=== PATIENT | male | born 1950 | race Caucasian/White ===

== ENCOUNTER 2019-09-11 12:43 | Outpatient (CLI) | payer MEDICARE, BC, SELFPAY ==
--- NOTE | 2019-09-11 13:01 | MR_ITS ---
WS: [id number] MRI CERVICAL SPINE NONCONTRAST TECHNIQUE: Sagittal T1, T2 and STIR imaging. Axial T2, gradient, and fiesta imaging. CLINICAL INFORMATION: NECK PAIN COMPARISON: November 05, 2008 FINDINGS: Some images degraded by patient motion. Straightening of the normal cervical lordosis. Cord signal is normal. No high-grade central canal stenosis. C2-C3: Mild right greater than left bony foraminal narrowing. Moderate right facet arthropathy. Spina l canal is patent. C3-C4: Mild disc osteophytic ridging. Moderate facet arthropathy. Moderate bilateral bony foraminal n arrowing. Spinal canal is patent. C4-C5: Mild disc bulging with endplate ridging. Moderate left and mild right bony foraminal narrowing . Moderate facet arthropathy. Spinal canal is patent. C5-C6: Mild disc osteophyte complex with endplate ridging. Mild central canal stenosis. Moderate left and mild to moderate right bony foraminal narrowing. Mild facet arthropathy. C6-C7: Shallow central disc protrusion with slight effacement of ventral thecal sac. Mild left and no significant right foraminal narrowing. Spinal canal is patent. C7-T1: Mild left and no significant right foraminal narrowing. Spinal canal is patent Visualized brain stem structures: Normal. Prevertebral soft tissues: Normal. MR/MR cervical spin wo con* [id number] IMPRESSION: 1. Straightening of the normal cervical lordosis. Cord signal is normal. No hi gh-grade central canal stenosis. 2. Mild central canal stenosis C4-C5 and C5-C6. 3. Small central disc protrusion C6-C7 with slight contact of the cervical cor d without significant central canal narrowing. 4. Multilevel mild to moderate bony foraminal narrowing worse at bilateral C3- 4, left C4-5, bilateral C5-C6 left greater than right, and left C6-7. 5. Multilevel moderate facet arthropathy worse at right C2-3, right C3-4, left C4-5.
--- NOTE | 2019-09-11 13:01 | MR_ITS ---
WS: [id number] MRI HEAD WITH CONTRAST WITH ATTENTION TO THE INTERNAL AUDITORY CANALS TECHNIQUE: Sagittal T1, T2 axial, T2 axial flair, axial susceptibility weighted imaging, axial diffus ion weighted images, and coronal T2 images were obtained. Pre and post T1 axial and post T1 coronal i mages. ADC and FSPGR images. Post gadolinium images with attention to the internal auditory canals. A xial fiesta imaging. CLINICAL INFORMATION: NECK PAIN COMPARISON: MRI November 05, 2008 FINDINGS: No evidence of restricted diffusion to suggest acute ischemia. Ventricular system and basal cisterns are patent. Minimal small vessel changes. Moderate parenchymal volume loss. Normal posterior fossa. N ormal vascular flow voids at the skull base. No extra-axial fluid collections. Paranasal sinuses and mastoid air cells are well aerated. No hemosiderin on the susceptibility weight ed images. Proximal 7th and 8th cranial nerves are normal in appearance. Normal trigeminal nerve root entry zones. No evidence of enhancing IAC or CP angle mass. Mild to moderate symmetric atrophy invol ving the temporal lobes and hippocampal formations. No abnormal intracranial enhancement. Normal visu alized dural venous sinuses. MR/MR iac's wo/w con* [id number] IMPRESSION: 1. No evidence of enhancing IAC or CP angle mass. Normal trigeminal nerve root entry zones. 2. Paranasal sinuses and mastoid air cells are well aerated. 3. Minimal small vessel changes with mild to moderate parenchymal volume loss. 4. No abnormal intracranial enhancement. 5. No restricted diffusion to suggest acute ischemia. 6. Mild to moderate symmetric atrophy involving the temporal lobes or hippocam pal formations. 7. Normal optic chiasm and pituitary infundibulum.
== END 2019-09-11 12:44 | disposition home or self-care (01) ==
LOC: RADWPI 12:51
PROVIDERS: Family Provider Family Medicine; PCP Family Medicine; Visit Provider Family Medicine
DX: M54.2 Cervicalgia (principal)
CPT/HCPCS: 70553; 72141; 82565; 84520

== ENCOUNTER 2019-10-12 17:02 | Emergency (ER) | payer MEDICARE, BC, SELFPAY ==
--- NOTE | 2019-10-12 17:15 | CTR_ITS ---
PROCEDURE INFORMATION: Exam: CT Head Without Contrast Exam date and time: 10/12/2019 5:17 PM Age: 69 years old Clinical indication: Dizziness and visual disturbance; Patient HX: Blurred vision for years. Worse withing last few days; Additional info: Vision problems TECHNIQUE: Imaging protocol: Computed tomography of the head without contrast. Radiation optimization: All CT scans at this facility use at least one of these dose optimization techniques: automated exposure control; mA and/or kV adjustment per patient size (includes targeted exams where dose is matched to clinical indication); or iterative reconstruction. COMPARISON: MR marley wo/w con* [id number] 09/11/2019 1:46 PM RADIATION DOSE METRICS: Total DLP: 847.86 mGy-cm FINDINGS: Brain: Mild cortical volume loss. No abnormal attenuation in the brain. No intracranial hemorrhage. Ventricles: Normal. No ventriculomegaly. Bones/joints: Unremarkable. No acute fracture. Sinuses: Visualized sinuses are unremarkable. No fluid levels. Mastoid air cells: Visualized mastoid air cells are well aerated. Soft tissues: Unremarkable. CT/CT head wo con* [id number] IMPRESSION: 1. No acute intracranial abnormality. Radiation Dose CTDIVOL = (mGy): DLP = 847.86 (mGy-cm)
[2019-10-12 17:22] VITALS: BP 178/107; PULSE 104; RESP 14; TEMP 36.2; O2SAT 95; BMI 27.9
--- NOTE | 2019-10-12 18:01 | ED_ITS ---
Documented by User: Elias Younger DO 10/13/19 11:02 HPI - Neuro Symptoms/Deficit General: Chief Complaint: Neuro Symptoms/Deficit Stated Complaint: double vision x 3 days Time Seen by Provider: 10/12/19 17:45 History of Present Illness: HPI Narrative: 69-year-old male comes in complaining that he cannot focus off and on his had problem with vision for several years. This happens to be a little bit worse today occasionally gets double vision. He has vertiginous symptoms particularly if he turns his head to the left or right but that as well is not anything new. States this started in 2008. He seen his primary care for DrStef for recently he had an MRI about 3 weeks ago [facility] of his head and his neck. He is referred to Dr. Boles for some cervical pathology he has seen Dr. Jackson in the past for s ome evaluation for the double vision and vertigo but he said nothing really came of that and is not seeing her back or any other neurologist. He denies any other problems. Denies any chest pain or shortness of breath denies any or GI symptoms that are new or different he has tried meclizine in the past with limited relief of symptoms. Onset (ago): year(s) (11 years worsening the last few days) Timing confirmed by: spouse History of same: Yes Severity: moderate Relieving factors: rest On Anticoagulants: No Associated symptoms: Reports no associated symptoms; Deny chest pain, malaise, nausea or vomiting Review of Systems Const: Denies: fever(s), chills, body aches, change in appetite, fatigue or malaise ENMT: Denies: throat pain, ear or mastoid pain, nasal discharge or nasal congestion Card: Denies: chest pain, edema, dyspnea on exertion or orthopnea Resp: Denies: dyspnea, productive cough or non-productive cough GI: Denies: abdominal pain, nausea, vomiting, hematemesis, coffee ground emesis, diarrhea, constipation, bloating, hematochezia or melena : Denies: flank pain, dysuria, urinary frequency or urinary urgency Skin/Breast: Denies: rash or pruritus PFSH ED PFSH: Social History Smoking and tobacco status: never smoked Physical Exam Const: COMMON NORMALS: no acute distress GENERAL APPEARANCE: cooperative and comfortable ORIENTATION/CONSCIOUSNESS: Yes awake, Yes oriented to person, Yes oriented to place and Yes oriented to time HENMT: COMMON NORMALS: normocephalic, atraumatic, hearing grossly normal bilaterally, external ears normal, EAC's normal, TM's normal bilaterally, Normal nasal mucous membranes and turbinates present, moist oral mucous membranes and oropharynx normal HEAD & SCALP: normocephalic and atraumatic NOSE: Normal nasal mucous membranes and turbinates present EXTERNAL EAR: Yes external ears normal EXTERNAL AUDITORY CANAL: EAC's normal TYMPANIC MEMBRANE: TM's normal bilaterally Eye: COMMON NORMALS: Equal, round and reactive pupils present, EOMs intact b ilaterally, conjunctivae normal and no scleral icterus CONJUNCTIVA: Yes conjunctivae normal PUPIL: Yes Equal, round and reactive pupils present Neck/C-Spine: COMMON NORMALS: full ROM, no lymphadenopathy, supple and no JVD Lymph: LYMPHATIC: no lymphadenopathy noted and no lymphedema noted Resp: COMMON NORMALS: normal respiratory effort, No retractions, No use of accessory muscles and clear to auscultation bilaterally AUSCULTATION: clear to auscultation bilaterally Cardio: COMMON NORMALS: no JVD, regular rate, regular rhythm and No murmurs present (Cardio) RATE: regular rate RHYTHM: regular rhythm GI: COMMON NORMALS: Soft to palpation and No hepatosplenomegaly present AUSCULTATION: Yes normoactive bowel sounds PALPATION: Yes Soft to palpation, No Tenderness to palpation present (GI), No Guarding due to palpation present (GI) and Yes No hepatosplenomegaly present Extremity: COMMON NORMALS: normal to inspection, capillary refill normal, no clubbing, cyanosis or edema, no calf tenderness and no pedal edema Neuro: SENSORIUM/ORIENTATION: Yes oriented to person, Yes oriented to place and Yes oriented to time Skin: COMMON NORMALS: no rashes or lesions noted GENERAL SKIN EXAM: no rashes or lesions noted Course Vital Signs: Vital signs: Vital Signs Temperature 97.1 F L 10/12/19 17:22 Pulse Rate 75 10/12/19 20:13 Respiratory Rate 18 10/12/19 20:13 Blood Pressure 159/109 10/12/19 20:13 Pulse Oximetry 98 10/12/19 20:13 MDM - Neuro Symptoms/Deficit MDM Narrative: Medical decision making narrative: Care turned over to Dr. Funez at change of shift. Reviewed Dr. Funez recently had MRI of the head and neck. Unfortunately I am not sure if we will do much for Mr. james here in the emergency room this is been a very longstanding problem and he has had extensive work-up beyond her capability here in the ER. Has not had any focal neurologic deficit that seems to be an exacerbation of chronic problems blood pressure is elevated given something to help alleviate that also some Ativan to help with the vertiginous symptoms I do question whether or not he has had purulent fistula years ago but he related that when this first began he was doing some heavy lifting recommended to him to discuss his primary care doctor referral to either neurology and/or ENT for further evaluation discussed this with Dr. Funez as well. Discharge Plan Discharge Patient Disposition: Home, Self-Care Clinical Impression: Dizziness Condition: Stable Prescriptions: New diazepam 5 mg tablet 2.5 mg PO QID PRN (Reason: dizziness or vertigo) Qty: 20 RF: 0 No Action celecoxib [Celebrex] 200 mg Capsule 200 mg PO BID PRN (Reason: Back Pain) RF: 0 omeprazole 20 mg Capsule,Delayed Release(Dr/Ec) 20 mg PO DAILY RF: 0 amlodipine-benazepril 10-20 mg Capsule 1 cap PO DAILY RF: 0 Tylenol Arthritis Pain 650 mg Tablet Extended Release 1,300 mg PO PRN RF: 0 Discharge Orders: Discharge Order (Routine); Ordered 10/12/19 Ordered By: Brenda Nicholas Referrals: Ele Jackson MD [Physician] - 1-3 days Yoseph Morel MD [Physician] - 1-3 days Grayson Batista MD [Primary Care Provider] - 1-3 days Discharge Diet: Advance as tolerated Discharge Activity: Increase activity as tolerated Patient Instructions: Vertigo (ED), Benign Paroxysmal Positional Vertigo (ED) Activity Restrictions/Additional Instructions: Please return to the ER immediately for any of the signs or symptoms listed on your discharge instruction sheets, worsening/changing of your symptoms, you are not getting better as quickly as expected, or for ANY other cause or concerns. You have been offered further evaluation and care here including blood work but you have declined. If your symptoms change or worsen in any way please return to the ER immediately for reexamination and further care. Contact Dr. Batista as soon as possible for an appointment to be seen in follow-up. Call for appointments to be seen by Dr. Jackson and Dr. Morel to have them evaluate you as well for your dizziness. Our case management will contact you in regards to outpatient physical therapy for your vertigo. Use the Valium for the next 2 days and then as needed only. Discharge Date/Time: 10/12/19 20:14 Sign Out Sign Out Data: Patient Sign Out occurred on 10/12/19 at 18:30. Patient's care was discussed, and care was transferred from to Brenda Nicholas. Coding Level of Care Code ED Jewelry Model Maker for Chg Fwd Exam Comprehensive Documented by User: Brenda Nicholas 10/12/19 21:35 HPI - Neuro Symptoms/Deficit General: Chief Complaint: Neuro Symptoms/Deficit Stated Complaint: double vision x 3 days Time Seen by Provider: 10/12/19 17:45 PFSH ED PFSH: Social History Smoking and tobacco status: never smoked Course Vital Signs: Vital signs: Vital Signs Temperature 97.1 F L 10/12/19 17:22 Pulse Rate 75 10/12/19 20:13 Respiratory Rate 18 10/12/19 20:13 Blood Pressure 159/109 10/12/19 20:13 Pulse Oximetry 98 10/12/19 20:13 MDM - Neuro Symptoms/Deficit MDM Narrative: Medical decision making narrative: 193 -patient's care was turned over to me at change of shift from Dr. Younger. Please see his portion of this note for his history, physical exam and medical decision making notes. Here the patient has mild nystagmus when looking to the left. He denies diplopia to me but states that he gets vision that it is hard to focus when this flares up. Denies any drunk sensation when he walks, he denies chest pain, shortness of breath, headache or otherwise. After his IV Ativan he states he is feeling better and his dizziness is improved although not completely gone. I reviewed the case with Dr. Jackson who agrees to see the patient in follow-up but thinks a referral for outpatient physical therapy for vestibular work-up and treatment would be appropriate. The patient agrees to do this. The patient will try Valium at home for his dizziness. He also would like to follow-up with an ENT as he has been told by family that can help so I will refer him to Dr. Morel. The patient had previously declined any kind of lab work-up. He declines any lab work at this time. He does though agree to return should his symptoms change or worsen. Imaging Data^: CT Head: Radiologist's impression: [place] [id number] CT Scan Report Signed Patient: Víctor James Unit #: [id number] : 1950 Age/Sex: 69 / M ADM Date: 10/12/19 Loc: ER Room/Bed: Attending Dr: Ordering Provider/Ordering MD: Barry Fletcher MD Date of Service: 10/12/19 Procedure(s): CT head wo con* [id number] Accession Number(s): [id number] Report Number: [id number] PROCEDURE INFORMATION: Exam: CT Head Without Contrast Exam date and time: 10/12/2019 5:17 PM Age: 69 years old Clinical indication: Dizziness and visual disturbance; Patient HX: Blurred vision for years. Worse withing last few days; Additional info: Vision problems TECHNIQUE: Imaging protocol: Computed tomography of the head without contrast. Radiation optimization: All CT scans at this facility use at least one of these dose optimization techniques: automated exposure control; mA and/or kV adjustment per patient size (includes targeted exams where dose is matched to clinical indication); or iterative reconstruction. COMPARISON: MR marley wo/w con* [id number] 09/11/2019 1:46 PM RADIATION DOSE METRICS: Total DLP: 847.86 mGy-cm FINDINGS: Brain: Mild cortical volume loss. No abnormal attenuation in the brain. No intracranial hemorrhage. Ventricles: Normal. No ventriculomegaly. Bones/joints: Unremarkable. No acute fracture. Sinuses: Visualized sinuses are unremarkable. No fluid levels. Mastoid air cells: Visualized mastoid air cells are well aerated. Soft tissues: Unremarkable. CT/CT head wo con* [id number] IMPRESSION: 1. No acute intracranial abnormality. Radiation Dose CTDIVOL = (mGy): DLP = 847.86 (mGy-cm) Dictated By: Nicolas Hirsch Signed By: Nicolas Hirsch Signed Date/Time: 10/12/191739 DD/ 36 EKG Data^: EKG 1: Attestation: I personally reviewed and interpreted this EKG as follows: EKG interpretation date: 10/12/19 EKG interpretation time: 18:29 Interpretation: Normal sinus rhythm at 76 beats a minute, no blocks, normal intervals, nonspecific ST and T wave changes. Discharge Plan Discharge Patient Disposition: Home, Self-Care Clinical Impression: Dizziness Condition: Stable Prescriptions: New diazepam 5 mg tablet 2.5 mg PO QID PRN (Reason: dizziness or vertigo) Qty: 20 RF: 0 No Action celecoxib [Celebrex] 200 mg Capsule 200 mg PO BID PRN (Reason: Back Pain) RF: 0 omeprazole 20 mg Capsule,Delayed Release(Dr/Ec) 20 mg PO DAILY RF: 0 amlodipine-benazepril 10-20 mg Capsule 1 cap PO DAILY RF: 0 Tylenol Arthritis Pain 650 mg Tablet Extended Release 1,300 mg PO PRN RF: 0 Discharge Orders: Discharge Order (Routine); Ordered 10/12/19 Ordered By: Brenda Nicholas Referrals: Ele Jackson MD [Physician] - 1-3 days Yoseph Morel MD [Physician] - 1-3 days Grayson Batista MD [Primary Care Provider] - 1-3 days Discharge Diet: Advance as tolerated Discharge Activity: Increase activity as tolerated Patient Instructions: Vertigo (ED), Benign Paroxysmal Positional Vertigo (ED) Activity Restrictions/Additional Instructions: Please return to the ER immediately for any of the signs or symptoms listed on your discharge instruction sheets, worsening/changing of your symptoms, you are not getting better as quickly as expected, or for ANY other cause or concerns. You have been offered further evaluation and care here including blood work but you have declined. If your symptoms change or worsen in any way please return to the ER immediately for reexamination and further care. Contact Dr. Batista as soon as possible for an appointment to be seen in follow-up. Call for appointments to be seen by Dr. Jackson and Dr. Morel to have them evaluate you as well for your dizziness. Our case management will contact you in regards to outpatient physical therapy for your vertigo. Use the Valium for the next 2 days and then as needed only. Discharge Date/Time: 10/12/19 20:14 Sign Out Sign Out Data: Patient Sign Out occurred on 10/12/19 at 18:30. Patient's care was discussed, and care was transferred from to Brenda Nicholas. Coding Level of Care Code ED Jewelry Model Maker for Harjinderg Fwd Exam Comprehensive
[2019-10-12] MEDS: LORazepam 2 mg/mL INJ 1 mL 1 MG IVP (18:41)
[2019-10-12] MEDS: amlodipine 5 mg Tablet PO (18:41)
[2019-10-12] MEDS: hyDRALAzine 20 mg/mL INJ 1 mL 5 MG IVP (18:41)
[2019-10-12 19:06] VITALS: BP 154/80; PULSE 76; RESP 16; O2SAT 97
[2019-10-12] MEDS: diazePAM 2 mg Tablet PO (20:09)
[2019-10-12 20:13] VITALS: BP 159/109; PULSE 75; RESP 18; O2SAT 98
--- NOTE | 2019-10-15 08:24 | DCPLANNER ---
nurse outreach case manager had message to arrange out patient physical therapy for patient. nurse outreach case manager faxed order for patients physical therapy to [facility]. nurse outreach case manager will call for appointment information.
== END 2019-10-12 20:14 | disposition home or self-care (01) ==
PROVIDERS: Emergency Provider Emergency Medicine; PCP Family Medicine
DX: R42 Dizziness and giddiness (principal)
CPT/HCPCS: 12345; 70450; 96374; 96375; 99281; 99283; J0360; J2060

== ENCOUNTER 2020-08-08 14:26 | Outpatient (CLI) | payer MEDICARE, BC, SELFPAY ==
--- NOTE | 2020-08-08 | US_ITS ---
WS: [id number] ULTRASOUND ABDOMEN CLINICAL INFORMATION: ELEVATED LIVER ENZYMES COMPARISON: None. FINDINGS: Liver Size: Enlarged Craniocaudal length: 18.6 cm. Echogenicity: Coarse with fatty infiltration Surface nodularity: None. Mass (size and location): None. Bile ducts Intrahepatic ducts: Normal. Common bile duct diameter: 2.1 mm. Gallbladder Normal. Gallstones: None. Gallbladder sludge: None. Gallbladder wall thickening: None. Pericholecystic fluid: None. Sonographic Johnson sign: Absent. Pancreas Normal as visualized. Right kidney: Normal. Hydronephrosis: None. Size: 10.6 cm x 5.1 cm x 4.5 cm Abdominal aorta and IVC Visualized portions are normal. Ascites: None. US/US liver [id number] IMPRESSION: 1. Hepatomegaly with diffuse fatty infiltration. 2. Normal gallbladder. 3. Normal common bile duct. 4. No hydronephrosis in right kidney.
== END 2020-08-08 14:27 | disposition home or self-care (01) ==
PROVIDERS: PCP Family Medicine; Visit Provider Family Medicine
DX: R94.5 Abnormal results of liver function studies (principal); R16.0 Hepatomegaly, not elsewhere classified; K76.0 Fatty (change of) liver, not elsewhere classified
CPT/HCPCS: 76705

== ENCOUNTER 2020-08-15 07:06 | Emergency (ER) | payer MEDICARE, BC, SELFPAY ==
[2020-08-15 07:10] VITALS: BP 167/95; PULSE 76; RESP 18; TEMP 36.4; O2SAT 97; BMI 27.5
--- NOTE | 2020-08-15 07:22 | CT_ITS ---
WS: [id number] CTA HEAD AND NECK TECHNIQUE: Contrast enhanced CTA of the head and neck with coronal and sagittal reformatted images an d maximum intensity projection (MIP) images. NASCET criteria utilized. CLINICAL INFORMATION: TIA COMPARISON: None. DLP: 2694.[address] scans at [facility] use at least one of these dose optimization techniques: automat ed exposure control; mA and/or kV adjustment per patient size (includes targeted exams where dose is matched to clinical indication); or iterative reconstruction. FINDINGS: RIGHT: Right common carotid artery is patent. No significant right ICA stenosis. ICA is patent to the skull base. LEFT: Left common carotid artery is patent. No significant left ICA stenosis. Left ICA is patent to t he skull base. Both vertebral arteries are patent. Hypoplastic right vertebral artery. INTRACRANIAL CTA: Proximal basilar artery is patent. Normal vascularity to the LAND SURVEYOR MANAGER territory bilaterally. Diminutive ve rtebrobasilar system. Anterior dominant circulation. Both ICAs are patent at the skull base. Normal v ascularity to the CÉSAR and MCA territories bilaterally. No evidence of high-grade proximal stenosis or aneurysm. Mild intracranial vascular calcification. Partially visualized right hilar lymphadenopathy measuring 3.[address]/CT angio headneck* [id number] IMPRESSION: 1. Partially visualized right hilar lymphadenopathy measuring 3.2 x 2.2 CM. Ne oplasm is not excluded recommend further evaluation with contrast-enhanced ches t CT. 2. No significant ICA stenosis bilaterally. Both ICAs are patent to the skull base. 3. No flow-limiting intracranial stenosis. 4. Left dominant vertebral artery with diminutive vertebrobasilar system and a nterior dominant circulation. 5. No other significant findings. Notified Elias Younger DO at 08/15/2020 8:52 AM.
--- NOTE | 2020-08-15 07:22 | XRR_ITS ---
PROCEDURE INFORMATION: Exam: XR Chest Exam date and time: 08/15/2020 7:26 AM Age: 69 years old Clinical indication: Other: HTN; Patient HX: No chest complaints TECHNIQUE: Imaging protocol: XR of the chest Views: 1 view. COMPARISON: No relevant prior studies available. FINDINGS: Lungs: Unremarkable. No consolidation. Pleural spaces: Unremarkable. No pleural effusion. No pneumothorax. Heart/Mediastinum: Unremarkable. No cardiomegaly. Bones/joints: Unremarkable. XR/XR chest 1V portable [id number] IMPRESSION: No significant findings.
--- NOTE | 2020-08-15 07:23 | CT_ITS ---
WS: [id number] CT HEAD TECHNIQUE: Noncontrast CT of the head obtained from the skullbase to the vertex. CLINICAL INFORMATION: Symptoms of Acute Stroke COMPARISON: None. DLP: 863.[address] scans at [facility] use at least one of these dose optimization techniques: automat ed exposure control; mA and/or kV adjustment per patient size (includes targeted exams where dose is matched to clinical indication); or iterative reconstruction. FINDINGS: No evidence of intracranial hemorrhage or mass effect. Ventricular system and basal cisterns are chaudhari nt. Mild small vessel changes with mild parenchymal volume loss. No extra-axial fluid collections. No evidence of mass or mass effect. Normal contreras-white differentiation. Paranasal sinuses and mastoid air cells are well aerated. .Normal visualized soft tissues. CT/CT head wo con* [id number] IMPRESSION: 1. No evidence of intracranial hemorrhage or mass effect. 2. Mild small vessel changes. Mild parenchymal volume loss. 3. No acute intracranial findings. Notified Elias Younger DO at 08/15/2020 8:20 AM.
--- NOTE | 2020-08-15 07:23 | ECG_ITS ---
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 Measurements Intervals [place] Rate: 63 P: 13 MA: 127 QRS: -21 QRSD: 106 T: 8 QT: 406 QTc: 417 Interpretive Statements SINUS RHYTHM BORDERLINE LEFT AXIS DEVIATION [QRS AXIS < -20] No previous ECG available for comparison Electronically Signed On 08-16-2020 1:11:33 CDT by Opal Kamara M.D. [email or web address]
--- NOTE | 2020-08-15 07:24 | ED_ITS ---
HPI - Neuro Symptoms/Deficit General: Chief Complaint: Neuro Symptoms/Deficit Stated Complaint: FACE/ARM/LEG NUMBNESS Time Seen by Provider: 08/15/20 07:14 History of Present Illness: HPI Narrative: 69-year-old male presents emergency room with complaint of left-sided numbness, tingling and weakness. Patient woke up this morning and seemed to be his normal self and then about 20 to 30 minutes after he woke up he began getting numbness and tingling on the left side of his face his arm and his leg on the left. This is all resolved now. He has a history of hypertension was recently told he had fatty liver he was also started on Metformin but he is does not recall being told he is diabetic. He is not previously had any heart disease or previous TIAs or strokes that he is aware of. Symptoms lasted less than 1 hour. Onset (ago): minute(s) Location: left face, left arm and left leg History of same: No Severity: mild Quality: weak, numb and tingling Relieving factors: time Exacerbating factors: none Associated symptoms: Deny chest pain, cough, diaphoresis, fevers/chills, headache(s), anorexia, malaise, nausea, seizures, short of breath, syncope, tingling, vertigo, vomiting or weakness Treatments Prior to Arrival: none Review of Systems Const: Denies: malaise or diaphoresis ENMT: Denies: throat pain, ear or mastoid pain, nasal discharge or nasal congestion Card: Denies: chest pain or syncope Resp: Denies: dyspnea, productive cough or non-productive cough GI: Denies: nausea or vomiting : Denies: flank pain, dysuria, urinary frequency or urinary urgency Skin/Breast: Denies: rash or pruritus Neuro: Denies: headache(s) or vertigo PFS ED PFSH: Social History Smoking and tobacco status: never smoked NIH stroke score NIHSS: Level Of Consciousness - 1a: 0 Level Of Consciousness Questions - 1b: Both Correct Level Of Consciousness Commands - 1c: Both Correct Best Gaze - 2: Normal Visual Hunter - 3: No Visual Loss Facial Palsy - 4: Normal Motor Arm Right - 5: No Drift Motor Arm Left - 5: No Drift Motor Leg Right - 6: No Drift Motor Leg Left - 6: No Drift Limb Ataxia - 7: Absent Sensory - 8: Normal Best Language - 9: No Aphasia Dysarthia - 10: Normal Extinction And Inattention - 11: 0 Score: Total Score: 0 Physical Exam Const: COMMON NORMALS: no acute distress GENERAL APPEARANCE: cooperative and comfortable ORIENTATION/CONSCIOUSNESS: Yes awake, Yes oriented to person, Yes oriented to place and Yes oriented to time HENMT: COMMON NORMALS: normocephalic, atraumatic, hearing grossly normal bilaterally, external ears normal, EAC's normal, TM's normal bilaterally, Normal nasal mucous membranes and turbinates present, moist oral mucous membranes and oropharynx normal HEAD & SCALP: normocephalic and atraumatic NOSE: Normal nasal mucous membranes and turbinates present EXTERNAL EAR: Yes external ears normal EXTERNAL AUDITORY CANAL: EAC's normal TYMPANIC MEMBRANE: TM's normal bilaterally Eye: COMMON NORMALS: Equal, round and reactive pupils present, EOMs intact bilaterally, conjunctivae normal and no scleral icterus CONJUNCTIVA: Yes conjunctivae normal PUPIL: Yes Equal, round and reactive pupils present Neck/C-Spine: COMMON NORMALS: no JVD Resp: COMMON NORMALS: normal respiratory effort, No retractions, No use of accessory muscles and clear to auscultation bilaterally AUSCULTATION: clear to auscultation bilaterally Cardio: COMMON NORMALS: no JVD, regular rate, regular rhythm and No murmurs present (Cardio) RATE: regular rate RHYTHM: regular rhythm GI: COMMON NORMALS: Soft to palpation and No hepatosplenomegaly present AUSCULTATION: Yes normoactive bowel sounds PALPATION: Yes Soft to palpation, No Tenderness to palpation present (GI), No Guarding due to palpation present (GI) and Yes No hepatosplenomegaly present Extremity: COMMON NORMALS: normal to inspection, capillary refill normal, no clubbing, cyanosis or edema, no calf tenderness and no pedal edema Neuro: SENSORIUM/ORIENTATION: Yes oriented to person, Yes oriented to place and Yes oriented to time Skin: COMMON NORMALS: no rashes or lesions noted GENERAL SKIN EXAM: no rashes or lesions noted Course Vital Signs: Vital signs: Vital Signs Temperature 97.5 F L 08/15/20 07:10 Pulse Rate 65 08/15/20 08:50 Respiratory Rate 18 08/15/20 08:50 Blood Pressure 163/98 08/15/20 07:35 Pulse Oximetry 99 08/15/20 08:50 MDM - Neuro Symptoms/Deficit MDM Narrative: Medical decision making narrative: Symptoms completely resolved. CT of the head and neck is negative for any vascular compromise however there is a question of some enlarged lymph nodes on the upper portion chest which was caught on the CTA head and neck.Some right hilar lymphadenopathy which is concerning with lymph nodes as large as 3.2 cm. Discussed this with the patient will make a arrangements for an outpatient CT of the chest with contrast and a follow-up with Dr. Carver or Dr. Param Sarmiento one of the embedded processor. Additionally advised him to follow-up with Dr. Batista on his blood pressure its at home he reports blood pressures in the 130 systolic over the 70s. Here it is a little bit more elevated also asked him to start taking aspirin daily return if has problems. Lab Data: Labs: Lab Results 08/15/20 08/15/20 08/15/20 Range/Units 07:32 07:32 07:32 WBC 6.8 (4.0-10.0) 10^3/ uL RBC 4.38 (4.1-5.3) 10^6/u L Hgb 14.3 (11.7-16.6) g/dL Hct 42.4 (42.0-52.0) % MCV 96.8 H (80-94) fL MCH 32.6 (28.0-34.0) pg MCHC 33.7 (30.0-36.0) g/dL RDW 12.1 (12.1-15.1) % Plt Count 293 (130-400) 10^3/c mm MPV 8.8 (7.4-10.4) fL Neut % (Auto) 65.0 % Lymph % (Auto) 24.0 % [place] % (Auto) 8.1 % Eos % (Auto) 2.2 % Baso % (Auto) 0.6 % Neut # (Auto) 4.38 (1.8-7.7) 10^3/u L Lymph # (Auto) 1.6 (0.8-4.8) 10^3/u L [place] # (Auto) 0.6 (0.2-0.9) 10^3/u L Eos # (Auto) 0.2 (0.0-0.8) 10^3/u L Baso # (Auto) 0.0 (0.0-0.1) 10^3/u L Nucleated RBC % (a uto) 0 % Nucleated RBCs # 0.0 /100WBC PT 12.80 (12.1-14.9) SECO NDS INR 0.93 (0.8-1.2) APTT 26.0 (23.9-36.7) SECO NDS Sodium 139 (136-145) mmol/L Potassium 4.1 (3.5-5.1) mmol/L Chloride 105 (98-107) mmol/L Carbon Dioxide 23 (22-29) mmol/L Anion Gap 15.1 (5-19) BUN 15 (8-23) mg/dL Creatinine 1.0 (0.7-1.2) mg/dL GFR Calculation 73.9 L (90-130) mL/min Glucose 111 (65-115) mg/dL POC Glucose (70-110) mg/dL Calculated Osmolal ity 290 (285-295) mOsm/k g Calcium 9.0 (8.5-10.5) mg/dL Total Bilirubin 0.4 (0.15-1.2) mg/dL AST 31 (0-40) U/L ALT 57 H (0-41) U/L Alkaline Phosphata se 29 L (40-130) IU/L Total Protein 7.4 (6.6-8.7) g/dL Albumin 4.4 (3.5-5.2) g/dL Globulin 3.0 (1.3-4.6) g/dL Urine Color (Yellow) Urine Appearance (CLEAR) Urine pH (5-7) Ur Specific Gravit y (1.005-1.030) Urine Protein (Negative) Urine Glucose (UA) (Normal) Urine Ketones (Negative) Urine Blood (Negative) Urine Nitrate (Negative) Urine Bilirubin (Negative) Urine Urobilinogen (Negative) mg/dL Ur Leukocyte Edie ase (Negative) 08/15/20 08/15/20 Range/Units 07:33 08:30 WBC (4.0-10.0) 10^3/ uL RBC (4.1-5.3) 10^6/u L Hgb (11.7-16.6) g/dL Hct (42.0-52.0) % MCV (80-94) fL MCH (28.0-34.0) pg MCHC (30.0-36.0) g/dL RDW (12.1-15.1) % Plt Count (130-400) 10^3/c mm MPV (7.4-10.4) fL Neut % (Auto) % Lymph % (Auto) % [place] % (Auto) % Eos % (Auto) % Baso % (Auto) % Neut # (Auto) (1.8-7.7) 10^3/u L Lymph # (Auto) (0.8-4.8) 10^3/u L [place] # (Auto) (0.2-0.9) 10^3/u L Eos # (Auto) (0.0-0.8) 10^3/u L Baso # (Auto) (0.0-0.1) 10^3/u L Nucleated RBC % (a uto) % Nucleated RBCs # /100WBC PT (12.1-14.9) SECO NDS INR (0.8-1.2) APTT (23.9-36.7) SECO NDS Sodium (136-145) mmol/L Potassium (3.5-5.1) mmol/L Chloride (98-107) mmol/L Carbon Dioxide (22-29) mmol/L Anion Gap (5-19) BUN (8-23) mg/dL Creatinine (0.7-1.2) mg/dL GFR Calculation (90-130) mL/min Glucose (65-115) mg/dL POC Glucose 109 (70-110) mg/dL Calculated Osmolal ity (285-295) mOsm/k g Calcium (8.5-10.5) mg/dL Total Bilirubin (0.15-1.2) mg/dL AST (0-40) U/L ALT (0-41) U/L Alkaline Phosphata se (40-130) IU/L Total Protein (6.6-8.7) g/dL Albumin (3.5-5.2) g/dL Globulin (1.3-4.6) g/dL Urine Color Yellow (Yellow) Urine Appearance Clear (CLEAR) Urine pH 6.5 (5-7) Ur Specific Gravit y 1.005 (1.005-1.030) Urine Protein Neg (Negative) Urine Glucose (UA) Norm (Normal) Urine Ketones Negative (Negative) Urine Blood Neg (Negative) Urine Nitrate Negative (Negative) Urine Bilirubin Neg (Negative) Urine Urobilinogen Norm (Negative) mg/dL Ur Leukocyte Edie ase Negative (Negative) Discharge Plan Discharge Patient Disposition: Home Clinical Impression: Transient cerebral ischemia, Hilar lymphadenopathy, Hypertension Condition: Stable Prescriptions: New aspirin 81 mg tablet,delayed release (DR/EC) 81 mg PO DAILY Qty: 30 RF: 0 No Action celecoxib [Celebrex] 200 mg Capsule 200 mg PO BID PRN (Reason: Back Pain) RF: 0 omeprazole 20 mg Capsule,Delayed Release(Dr/Ec) 20 mg PO DAILY RF: 0 amlodipine-benazepril 10-20 mg Capsule 1 cap PO DAILY RF: 0 Tylenol Arthritis Pain 650 mg Tablet Extended Release 1,300 mg PO PRN RF: 0 diazepam 5 mg tablet 2.5 mg PO QID PRN (Reason: dizziness or vertigo) Qty: 20 RF: 0 Discharge Orders: Discharge ED (Routine); Ordered 08/15/20 Ordered By: Elias Younger Referrals: Grayson Batista MD [Primary Care Provider] - Patient Instructions: Opioid Safety Activity Restrictions/Additional Instructions: Follow-up with Dr. Batista within a week to reevaluate blood pressure. Case management will call to make an appointment for a CT of the chest and follow-up with Dr. Arias for abnormal lymph nodes seen in the chest today. Coding Level of Care Code ED Veterinary Pathologist for Chg Fwd Exam Comprehensive
[2020-08-15 07:35] VITALS: BP 163/98; PULSE 65; RESP 18; O2SAT 99
[2020-08-15 07:39] LABS: Glucose Point of Care 109 mg/dL (70-110)
[2020-08-15 07:42] LABS: Basophils % 0.6 %; Eosinophils # 0.2 10^3/uL (0.0-0.8); Eosinophils % 2.2 %; Hematocrit 42.4 % (42.0-52.0); Hemoglobin 14.3 g/dL (11.7-16.6); Lymphocytes # 1.6 10^3/uL (0.8-4.8); Mean Corpuscular HGB Conc 33.7 g/dL (30.0-36.0); Mean Corpuscular Hemoglobin 32.6 pg (28.0-34.0); Mean Corpuscular Volume 96.8 fL (80-94); Mean Platelet Volume 8.8 fL (7.4-10.4); Monocytes # 0.6 10^3/uL (0.2-0.9); Monocytes % 8.1 %; Neutrophils # 4.38 10^3/uL (1.8-7.7); Nucleated Red Blood Cells % 0 %; Platelet Count 293 10^3/cmm (130-400); Red Blood Count 4.38 10^6/uL (4.1-5.3); Red Cell Distribution Width 12.1 % (12.1-15.1); White Blood Count 6.8 10^3/uL (4.0-10.0)
[2020-08-15 07:57] LABS: INR 0.93 (0.8-1.2)
[2020-08-15 08:04] LABS: Alanine Aminotransferase 57 U/L (0-41); Albumin Level 4.4 g/dL (3.5-5.2); Alkaline Phosphatase 29 IU/L (40-130); Anion Gap 15.1 (5-19); Aspartate Amino Transferase 31 U/L (0-40); Blood Urea Nitrogen 15 mg/dL (8-23); Carbon Dioxide 23 mmol/L (22-29); Chloride 105 mmol/L (98-107); Glomerular Filtration Rate 73.9 mL/min (90-130); Glucose 111 mg/dL (65-115); Osmolality Calculated 290 mOsm/kg (285-295); Potassium 4.1 mmol/L (3.5-5.1); Sodium 139 mmol/L (136-145); Total Bilirubin 0.4 mg/dL (0.15-1.2); Total Protein 7.4 g/dL (6.6-8.7)
[2020-08-15] MEDS: iohexol 350 mg/mL 100 mL Btl IV (08:17)
[2020-08-15 08:41] LABS: Add Urine Microscopic? NO; Charge for UA Resulting for Rev
[2020-08-15 08:50] VITALS: PULSE 65; RESP 18; O2SAT 99
[2020-08-15 08:50] LABS: Bilirubin Urine Neg (Negative); Blood Urine Neg (Negative); Glucose Urine UA Norm (Normal); Ketones Urine Negative (Negative); Leukocyte Esterase Urine Negative (Negative); Nitrate Urine Negative (Negative); Protein Urine Neg (Negative); Specific Gravity, Urine 1.005 (1.005-1.030); Urine Appearance Clear (CLEAR); Urine Color Yellow (Yellow); Urobilinogen Urine Norm (Negative); pH Urine 6.5 (5-7)
[2020-08-15 09:56] VITALS: BP 163/96; PULSE 65; RESP 18; O2SAT 98
--- NOTE | 2020-08-15 10:15 | DCPLANNER ---
product management manager to schedule an outpatient CT of chest for patient and then a follow up appointment with Dr. Arias. product management manager called centralized scheduling and spoke with Eliana, a CT scan was scheduled for Monday, August 17, 2020 at 8:15 at [facility]. product management manager called [facility], spoke with Vanessa, a follow up appointment was scheduled for Wednesday, August 19, 2020 at 10:[address] Arias. Patient was still in room in ED, major case detective informed patient of the scheduled appointments. Patient stated that he would attend the appointments.
--- NOTE | 2020-08-24 12:28 | DCPLANNER ---
Patient had a follow up appointment scheduled for 08.17.[address] - patient did attend appointment. Patient had a follow up appointment scheduled for 08.19.[address] Arias at [facility] - patient did attend appointment.
== END 2020-08-15 09:55 | disposition home or self-care (01) ==
PROVIDERS: Emergency Provider Family Medicine; PCP Family Medicine
DX: G45.9 Transient cerebral ischemic attack, unspecified (principal); R59.1 Generalized enlarged lymph nodes
CPT/HCPCS: 36416; 70450; 70496; 70498; 71045; 80053; 81003; 82962; 85025; 85610; 85730; 93005; 99284; Q9967

== ENCOUNTER 2020-08-17 08:04 | Outpatient (CLI) | payer MEDICARE, BC, SELFPAY ==
--- NOTE | 2020-08-17 08:12 | CT_ITS ---
WS: [id number] CT CHEST WITH INTRAVENOUS CONTRAST HISTORY: HILAR LYMPHADENOPATHY TECHNIQUE: Contiguous 5 mm axial imaging performed on the thorax. Coronal and sagittal reformats are submitted. All CT scans at [facility] use at least one of these dose optimization techniq ues: automated exposure control; mA and/or kV adjustment per patient size (includes targeted exams wh ere dose is matched to clinical indication); or iterative reconstruction. CONTRAST: Omnipaque 300; 95 mL IV. DLP: 988.15 mGycm COMPARISON: 08/15/2020 Lungs and central airway: Normal. Pleura: Normal. No pleural effusion. Heart and pericardium: . Mildly enlarged heart. No effusion. Mediastinum and carlos: Mildly prominent hilar lymph nodes. The largest lymph nodes measures 12 mm. Sli ghtly decreased in size since the prior study of 08/15/2020 and these may have been reactive lymph node s. Subcentimeter paratracheal lymph nodes. Vessels: Mild atherosclerosis aorta. No aneurysm. Normal size pulmonary artery. Chest wall and lower neck: No soft tissue masses. Upper abdomen: Subcentimeter cyst in the RIGHT lobe of the liver. Normal gallbladder as visualized. T he entire gallbladder is not imaged. No adrenal mass. There is mild thickening of the stomach mucosa may represent a mild gastroenteritis. No adjacent lymph nodes. Osseous structures: Increase in thoracic kyphosis. No osteoblastic or osteolytic bone disease. CT/CT chest w con* [id number] IMPRESSION: 1. No pulmonary mass or nodule or pneumonia. 2. Minimally prominent but indeterminate RIGHT hilar lymph nodes. Lymph node h as decreased in size since 08/15/2020 and these may may be reactive. 3. Very mild thickening of the stomach mucosa may be due to underdistention or mild gastritis. No inflammatory changes.
[2020-08-17] MEDS: iohexol 300 mg/mL 100 mL Btl IV (08:46)
== END 2020-08-17 08:05 | disposition home or self-care (01) ==
LOC: RADWPI 08:05
PROVIDERS: PCP Family Medicine; Visit Provider Family Medicine
DX: R59.1 Generalized enlarged lymph nodes (principal)
CPT/HCPCS: 71260; Q9967

== ENCOUNTER 2020-09-07 12:44 | Outpatient (CLI) | payer MEDICARE, BC, SELFPAY ==
--- NOTE | 2020-09-07 12:59 | MR_ITS ---
WS: [id number] MRI BRAIN WITH AND WITHOUT CONTRAST HISTORY: TIA COMPARISON: CT head 08/15/2020 and prior MRI 09/11/2019. TECHNIQUE: Multiplanar imaging performed through the brain with MultiHance 20 ml's IV. No acute infarcts are seen. Ramsey-white matter differentiation is well preserved. No significant micro vascular ischemic disease. No prior infarct. No susceptibility artifacts or prior lacunar infarcts. Ventricles and extra-axial spaces are normal. Clivus and pituitary gland are normal. Visualized posterior fossa and brainstem are also normal. Postcontrast images are negative for masses or vascular malformations. Dural venous sinuses are normal. Paranasal sinuses: Well aerated with no significant disease. Mastoid air cells: Normal. Calvarium and scalp: Normal. MR/MR head wo/w con [id number] IMPRESSION: 1. No evidence for an acute or remote infarct. 2. No enhancing masses. 3. Essentially normal MRI brain with contrast.
[2020-09-07] MEDS: gadobenate dimeglumine 20 mL vial IV (14:33)
== END 2020-09-07 12:45 | disposition home or self-care (01) ==
LOC: RADSHAW 12:47
PROVIDERS: PCP Family Medicine; Visit Provider Family Medicine
DX: G45.9 Transient cerebral ischemic attack, unspecified (principal)
CPT/HCPCS: 70553; A9577

== ENCOUNTER 2020-09-07 14:55 | Outpatient (CLI) | payer MEDICARE, BC, SELFPAY ==
--- NOTE | 2020-09-07 | US_ITS ---
WS: [id number] ULTRASOUND CAROTID INDICATION: Carotid stenosis. TIA. TECHNIQUE: Ultrasound examination both carotid arteries with Doppler. FINDINGS: Both common carotid arteries are patent. No significant ICA stenosis bilaterally. External carotid arteries are patent. Antegrade flow both vertebral arteries. US/ROR carotid duplex BI IMPRESSION: No significant ICA stenosis.
== END 2020-09-07 14:56 | disposition home or self-care (01) ==
PROVIDERS: PCP Family Medicine; Visit Provider Family Medicine
DX: Z53.9 Procedure and treatment not carried out, unspecified reason (principal)

== ENCOUNTER 2020-09-20 09:15 | Outpatient (CLI) | payer MEDICARE, BC, SELFPAY ==
--- NOTE | 2020-09-20 09:29 | USCV_ITS ---
JacobVíctor Age: 69 Gender: M : 1950 Exam Date: 09/20/2020 09:40 Ordering Phys: Grayson Batista MD Technologist: Felecia Yeung Exam Location: [facility] [place] Indication: TIA BP: 142 / 80 HR: 65 Rhythm: Sinus Technical Quality: Adequate MEASUREMENTS (Male / Female) Normal Values 2D ECHO LV Diastolic Diameter PLAX 4.4 cm 4.2 - 5.9 / 3.9 - 5.3 cm LV Systolic Diameter PLAX 2.5 cm LV Chamber Size 3.5 cm IVS Diastolic Thickness 1.3 cm 0.6 - 1.0 / 0.6 - 0.9 cm IVS Systolic Thickness 1.7 cm LVPW Diastolic Thickness 1.3 cm 0.6 - 1.0 / 0.6 - 0.9 cm LVPW Systolic Thickness 1.4 cm RV Chamber Size 2.8 cm LVOT Diameter 2.0 cm LV Ejection Fraction 2D Teich 73.9 % LV Ejection Fraction MOD 2C 74.3 % LV Ejection Fraction 2C AL 74.6 % LA Diameter 3.8 cm LA Width 2.9 cm LA Height 5.1 cm RA Width 3.1 cm RA Height 4.6 cm Aorta at Sinotubular Diameter 3.5 cm M-MODE LV Diastolic Diameter MM 3.0 cm 4.2 - 5.9 / 3.9 - 5.3 cm LV Systolic Diameter MM 1.8 cm LV Ejection Fraction MM Teich 70.1 % IVS Diastolic Thickness MM 0.9 cm 0.6 - 1.0 / 0.6 - 0.9 cm IVS Systolic Thickness MM 1.1 cm LVPW Diastolic Thickness MM 1.3 cm 0.6 - 1.0 / 0.6 - 0.9 cm LVPW Systolic Thickness MM 1.3 cm RV Diastolic Diameter MM 1.2 cm Aortic Annulus Diameter 3.9 cm LA Ao Ratio MM 1.1 MV E Point Septal Separation 0.3 cm DOPPLER AV Peak Velocity 166.0 cm/s LVOT Peak Velocity 96.0 cm/s AV Area Cont Eq vti 2.4 cm squared AV Area Cont Eq pk 1.9 cm squared MV Area PHT 3.1 cm squared Mitral E to A Ratio 1.5 MV E' Velocity 55.0 cm/s Mitral E to MV E' Ratio 8.5 Mitral E to LV E' Lateral Ratio 6.5 Mitral E to LV E' Septal Ratio 12.2 TR Peak Velocity 203.8 cm/s TR Peak Gradient 16.6 mmHg TR Mean Velocity 181.2 cm/s TR Mean Gradient 15.0 mmHg TR Velocity Time Integral 59.6 cm TV Peak E Velocity 55.0 cm/s Right Atrial Pressure 3.0 mmHg Pulmonary Artery Systolic Pressu 19.6 mmHg PV Peak Velocity 69.0 cm/s RV Acceleration Time 0.2 s RV Ejection Time 0.3 s RV AcT/ET 0.5 FINDINGS Left Ventricle Normal left ventricular size, systolic function and wall thickness, with no regional wall motion abnormalities. Left ventricular ejection fraction is estimated at 75 %. Normal diastolic function. Right Ventricle Normal right ventricular size and systolic function. Right ventricular systolic pressure 19.6 mmHg. Right Atrium Normal right atrial size. Right atrial pressure estimated at 3 mmHg. Left Atrium Upper normal left atrial size. Mitral Valve Structurally normal mitral valve. No mitral valve stenosis. Trace mitral valve regurgitation. Aortic Valve Structurally normal trileaflet aortic valve. No aortic valve stenosis. Moderate aortic valve regurgitation. Tricuspid Valve Structurally normal tricuspid valve. No tricuspid valve stenosis. Trace tricuspid valve regurgitation. Pulmonic Valve Structurally normal pulmonic valve. No pulmonary valve stenosis. Trace pulmonary valve regurgitation. Pericardium No pericardial effusion. Aorta Normal size aortic root and proximal ascending aorta. Normal- sized inferior vena cava with normal respiratory variation. CONCLUSIONS 1. Normal left ventricular size, systolic function and wall thickness, with no regional wall motion abnormalities. Left ventricular ejection fraction is estimated at 75 %. Normal diastolic function. 2. Normal right ventricular size and systolic function. 3. Normal pulmonary artery pressure. 4. Moderate aortic valve regurgitation. 5. No prior similar studies to compare. Lindsey Ryan MD (Electronically Signed) Final Date: 21 Sep 2020 18:50 S
== END 2020-09-20 09:16 | disposition home or self-care (01) ==
LOC: US 09:18
PROVIDERS: PCP Family Medicine; Visit Provider Family Medicine
DX: G45.9 Transient cerebral ischemic attack, unspecified (principal); I35.1 Nonrheumatic aortic (valve) insufficiency
CPT/HCPCS: 93306

== ENCOUNTER 2022-08-23 13:42 | Outpatient (CLI) | payer MEDICARE, SELFPAY ==
--- NOTE | 2022-08-23 13:58 | CT_ITS ---
WS: [id number] CT ABDOMEN AND PELVIS NONCONTRAST HISTORY: LEFT FLANK PAIN TECHNIQUE: Imaging performed through the abdomen and pelvis. Coronal and sagittal reformats are submi tted. All CT scans at [facility] use at least one of these dose optimization techniques: auto mated exposure control; mA and/or kV adjustment per patient size (includes targeted exams where dose is matched to clinical indication); or iterative reconstruction. DLP: 470.93 mGy.cm COMPARISON: None available. Lower thorax: Lung bases are clear. Visualized heart is normal. No hiatal hernia. Liver: Normal size liver. No mass or bile duct dilatation. Gallbladder: Normal gallbladder. Pancreas: Normal size and attenuation. Normal pancreatic duct. No pancreatitis or mass. Spleen: Normal size spleen with granulomata. Adrenal glands: Normal. No mass. Right kidney: Normal size kidney with no mass or hydronephrosis. Left kidney: Mild perinephric stranding and mild hydroureteronephrosis secondary to a ureteral calcif ication at the UV junction. Calcification extends over a length of 7 mm with a transverse diameter of 4.5 mm. No additional calcifications in the LEFT kidney. Aorta: Mild atherosclerosis abdominal aorta with no aneurysm. Bilateral accessory renal arteries. No free fluid, intraperitoneal air or significant lymphadenopathy. GI tract: Normal noncontrast imaging of the stomach, small bowel and colon. No obstruction or wall th ickening. Normal appendix. Minimal scattered diverticular disease distal colon. Abdominal wall: Negative. No hernia. Pelvis: Moderate prostate gland enlargement encroaching into the urinary bladder. No free fluid or ad enopathy. Osseous structures: Unremarkable. CT/CT kidney stone [id number] IMPRESSION: 1. Mild LEFT hydroureteronephrosis secondary to a 7.0 x 4.5 mm UV junction kelsea cification. 2. No additional renal calcifications. 3. Normal appendix. 4. Prostate gland enlargement and heterogeneity.
== END 2022-08-23 13:43 | disposition home or self-care (01) ==
PROVIDERS: PCP Family Medicine; Visit Provider Physician Assistant
DX: R10.9 Unspecified abdominal pain (principal); N13.30 Unspecified hydronephrosis; N40.0 Benign prostatic hyperplasia without lower urinary tract symptoms
CPT/HCPCS: 74176

== ENCOUNTER 2022-11-20 13:28 | Outpatient (CLI) | payer MEDICARE, SELFPAY ==
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
== END 2022-11-20 13:29 | disposition home or self-care (01) ==
PROVIDERS: PCP Family Medicine; Visit Provider Family Medicine
DX: M54.42 Lumbago with sciatica, left side (principal); M51.26 Other intervertebral disc displacement, lumbar region; M48.061 Spinal stenosis, lumbar region without neurogenic claudication; M47.816 Spondylosis without myelopathy or radiculopathy, lumbar region; N40.0 Benign prostatic hyperplasia without lower urinary tract symptoms
CPT/HCPCS: 72148

== ENCOUNTER 2023-05-17 13:45 | Emergency (ER) | payer MEDICARE, SELFPAY ==
[2023-05-17] VITALS (13 sets, daily range): BP systolic 79–173; BP diastolic 49–91; PULSE 87–103; RESP 17–27; O2SAT 91–100
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
[2023-05-17] MEDS: morphine 4 mg/mL SDV 1 mL IVP ×4 (13:56→17:11)
[2023-05-17] MEDS: ondansetron 2 mg/ML SDV 2 mL 4 MG IVP (13:57)
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
--- NOTE | 2023-05-17 14:02 | ECG_ITS ---
[facility] Test Date: 2023-05-17 Pat Name: Víctor James Department: Room: Gender: Male End Maker: : 1950 Requested By: Elias Cotter Order Number: [id number] Gentry MD: Opal Kamara M.D. Measurements Intervals Loop Rate: 102 P: 42 AR: 147 QRS: 38 QRSD: 96 T: 4 QT: 362 QTc: 472 Interpretive Statements SINUS TACHYCARDIA INDETERMINATE AXIS MINIMAL ST DEPRESSION [0.025+ mV ST DEPRESSION] ABNORMAL RHYTHM ECG Compared to ECG 08/15/2020 07:46:32 Indeterminate axis now present ST (T wave) deviation now present Sinus rhythm no longer present Electronically Signed On 05-17-2023 16:42:12 USER EXPERIENCE TEAM LEAD by Opal Kamara M.D. [id number]
[2023-05-17 14:15] LABS: Basophils % 0.3 %; Eosinophils # 0.1 10^3/uL (0.0-0.8); Eosinophils % 0.6 %; Hematocrit 40.2 % (37-53); Lymphocytes % 21.2 %; Mean Corpuscular HGB Conc 33.3 g/dL (30-55); Mean Corpuscular Hemoglobin 31.2 pg (27-33); Mean Corpuscular Volume 93.7 fl (82-101); Monocytes # 0.8 10^3/uL (0.2-0.9); Monocytes % 5.9 %; Neutrophils # 9.99 10^3/uL (1.8-7.7); Neutrophils % 71.2 %; Nucleated Red Blood Cells % 0 %; Platelet Count 243 10^3/cmm (157-399); Red Blood Count 4.29 10^6/uL (3.85-5.65); White Blood Count 14.04 10^3/uL (3.29-11.43)
[2023-05-17] MEDS: tetanus-diphtheria tox (adult) 0.5 mL SDV IM (14:27)
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
--- NOTE | 2023-05-17 14:36 | PC.PHAR ---
pts verified pts medications-pts states she thinks pt bought online a pill for vertigo- pts states she is unsure of the name of the medication but states she doesnt believe its meclizine-
[2023-05-17 14:44] LABS: Alanine Aminotransferase 87 U/L (0-41); Albumin Level 4.4 g/dL (3.5-5.2); Alkaline Phosphatase 30 U/L (40-130); Blood Urea Nitrogen 17 mg/dL (8-23); Calcium 9.5 mg/dL (8.5-10.5); Carbon Dioxide 20 mmol/L (22-29); Chloride 103 mmol/L (98-107); Globulin 2.8 g/dL (1.3-4.6); Glucose 120 mg/dL (65-115); Osmolality Calculated 291 mOsm/kg (285-295); Sodium 139 mmol/L (136-145); Total Bilirubin 0.6 mg/dL (0.15-1.2); Total Protein 7.2 g/dL (6.6-8.7)
[2023-05-17 14:48] LABS: Anion Gap 20.1 (5-19); Aspartate Amino Transferase 83 U/L (0-40); Potassium 4.1 mmol/L (3.5-5.1)
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
[2023-05-17 14:59] LABS: INR 1.07 (0.8-1.2)
[2023-05-17 15:00] LABS: Partial Thromboplastin Time 20.5 SECONDS (23.9-36.7)
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
[2023-05-17] MEDS: etomidate 2 mg/mL INJ SDV 10 mL 10 MG IVP (16:08)
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
[2023-05-17 16:28] LABS: Add Urine Culture? No; Add Urine Microscopic? YES; Bacteria Urine TRACE /hpf; Bilirubin Urine Neg (Negative); Blood Urine 2+ (Negative); Glucose Urine UA Norm (Normal); Ketones Urine 2+ (Negative); Leukocyte Esterase Urine Negative (Negative); Nitrate Urine Negative (Negative); Protein Urine Trace (Negative); RBC Urine 0-4 /hpf (0-2); Specific Gravity, Urine 1.005 (1.005-1.030); Squamous Epithelial Cell Urine 0-4 /hpf (0-5); Urine Appearance Clear (CLEAR); Urine Color Yellow (Yellow); Urobilinogen Urine Norm (Negative); WBC Urine 0-4 /hpf (0-5); pH Urine 6.5 (5-7)
[2023-05-17] MEDS: sodium chloride 0.9% 1,000 ML 999 ML IV (16:37)
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
[2023-05-17] MEDS: ceFAZolin 1,000 MG in sodium chloride 0.9% (plus) 50 ML 100 MG IV (17:11)
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
== END 2023-05-17 17:21 | disposition short-term general hospital (02) ==
PROVIDERS: Emergency Provider Family Medicine; PCP Family Medicine
DX: S32.402A Unspecified fracture of left acetabulum, initial encounter for closed fracture (principal); S52.91XA Unspecified fracture of right forearm, initial encounter for closed fracture; S52.201A Unspecified fracture of shaft of right ulna, initial encounter for closed fracture; S82.831A Other fracture of upper and lower end of right fibula, initial encounter for closed fracture; S82.002A Unspecified fracture of left patella, initial encounter for closed fracture; S62.396A Other fracture of fifth metacarpal bone, right hand, initial encounter for closed fracture; S92.001A Unspecified fracture of right calcaneus, initial encounter for closed fracture; S22.32XA Fracture of one rib, left side, initial encounter for closed fracture; S22.31XA Fracture of one rib, right side, initial encounter for closed fracture; V89.2XXA Person injured in unspecified motor-vehicle accident, traffic, initial encounter; Z87.891 Personal history of nicotine dependence; Z23 Encounter for immunization; S50.312A Abrasion of left elbow, initial encounter
CPT/HCPCS: 36415; 70450; 71045; 71260; 72125; 73090; 73110; 73560; 73590; 73600; 73610; 74177; 80053; 81001; 85025; 85610; 85730; 86850; 86900; 90471; 90714; 93005; 96365; 96375; 96376; 99291; 99292; J0690; J2270; J2405; J3490; J7030; Q9967

== ENCOUNTER 2023-08-27 10:22 | Outpatient (RCR) | payer MEDICARE, SELFPAY | END 2023-09-10 23:59 | disposition home or self-care (01) | LOC: SPT 10:22 | PROVIDERS: Visit Provider Orthopaedic Surgery | DX: S32.402D Unspecified fracture of left acetabulum, subsequent encounter for fracture with routine healing (principal); S92.001D Unspecified fracture of right calcaneus, subsequent encounter for fracture with routine healing; S82.002D Unspecified fracture of left patella, subsequent encounter for closed fracture with routine healing; S82.842D Displaced bimalleolar fracture of left lower leg, subsequent encounter for closed fracture with routine healing; X58.XXXD Exposure to other specified factors, subsequent encounter | CPT/HCPCS: 97110; 97161 ==

== ENCOUNTER 2023-09-11 06:00 | Outpatient (RCR) | payer MEDICARE, SELFPAY | END 2023-10-11 23:59 | disposition home or self-care (01) | LOC: SPT 06:00 | PROVIDERS: Visit Provider Orthopaedic Surgery | DX: S32.402D Unspecified fracture of left acetabulum, subsequent encounter for fracture with routine healing (principal); S92.001D Unspecified fracture of right calcaneus, subsequent encounter for fracture with routine healing; S82.002D Unspecified fracture of left patella, subsequent encounter for closed fracture with routine healing; S82.842D Displaced bimalleolar fracture of left lower leg, subsequent encounter for closed fracture with routine healing; X58.XXXD Exposure to other specified factors, subsequent encounter | CPT/HCPCS: 97110 ==

== ENCOUNTER → 2023-11-08 11:02 | Outpatient (BNVA) | payer MEDICARE, SELFPAY | PROVIDERS: PCP Family Medicine; Visit Provider Podiatrist Foot & Ankle Surgery | DX: L60.0 Ingrowing nail (principal) | CPT/HCPCS: 11750; 99203 ==

== ENCOUNTER → 2023-11-22 13:25 | Outpatient (BNVA) | payer MEDICARE, SELFPAY | PROVIDERS: PCP Family Medicine; Visit Provider Podiatrist Foot & Ankle Surgery | DX: L60.0 Ingrowing nail (principal) | CPT/HCPCS: 99213 ==

== ENCOUNTER → 2024-02-13 10:48 | Outpatient (BNVA) | payer MEDICARE, SELFPAY | PROVIDERS: PCP Family Medicine; Visit Provider Podiatrist Foot & Ankle Surgery | DX: L60.0 Ingrowing nail (principal) | CPT/HCPCS: 11730 ==

== ENCOUNTER → 2024-02-27 15:46 | Outpatient (BNVA) | payer MEDICARE, SELFPAY | PROVIDERS: PCP Family Medicine; Visit Provider Podiatrist Foot & Ankle Surgery | DX: L60.0 Ingrowing nail (principal) | CPT/HCPCS: 99213 ==

== ENCOUNTER 2024-11-29 03:39 | Observation (INO) | payer MEDICARE, SELFPAY ==
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
--- OUTSIDE RECORDS SUMMARY | 2024-07-21 04:40 | XMS_ITS ---
Author Organization [facility] Address [address] [place] [address] Care Team Providers Care Telegraph Service Clerk Name Role Phone Sun Cisse Unavailable [phone] Mateo Hay Unavailable [phone] REASON FOR VISIT Ref/Con: Colonoscopy Encounters Encounter Location Date Provider Diagnosis [facility] [address] [place] [phone] 07/21/2024 Mateo Hay Plan Of Treatment No Information Progress Notes * Víctor FINNEY RDOB:1950 ( 74 yo M)Acc No.[id number]:07/21/2024 Progress Notes Patient: Cyndee cortés Víctor Walls Provider: David Hay MD :1950 A ge:73 Y S ex:Male Date:07/21/2024 Address:[address] [id number] Subjective: * Chief Complaints: * R ef/Con: Colonoscopy * Electronic signature of Mervin Hay MD on 11/29/2024 at 03:53 AM CDT Sign off status: Pending * Provider: David Hay MD Date: 07/21/2024 Generated for Melva velez/Riccardo/Susanitting on: 11/29/2024 03:53 AM CDT
[2024-11-29] VITALS (15 sets, daily range): BP systolic 108–159; BP diastolic 55–119; PULSE 47–77; RESP 14–23; TEMP 36.4–36.7; O2SAT 91–97; BMI 29.0
--- NOTE | 2024-11-29 03:41 | ECG_ITS ---
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 Measurements Intervals Pierce Rate: 72 P: 51 NJ: 153 QRS: 19 QRSD: 109 T: 21 QT: 407 QTc: 445 Interpretive Statements SINUS RHYTHM Compared to ECG 05/17/2023 14:02:24 Sinus tachycardia no longer present Indeterminate axis no longer present ST (T wave) deviation no longer present Electronically Signed On 11-29-2024 18:35:25 CDT by Opal Kamara M.D. [email or web address]
--- NOTE | 2024-11-29 03:43 | XRR_ITS ---
PROCEDURE INFORMATION: Exam: XR Chest Exam date and time: 11/29/2024 3:43 AM Age: 74 years old Clinical indication: Shortness of breath; Chest pressure; Chest pain with SOB TECHNIQUE: Imaging protocol: Radiologic exam of the chest. Views: 1 view. COMPARISON: CT chest radha w/*[id number] 05/17/2023 2:09 PM FINDINGS: Lungs: Limited lung volumes. No consolidation. Pleural spaces: Unremarkable. No pleural effusion. No pneumothorax. Heart/Mediastinum: Unremarkable. No cardiomegaly. Bones/joints: Unremarkable. XR/XR chest 1V portable [id number] IMPRESSION: There is no evidence of active disease. Limited lung volumes.
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
--- NOTE | 2024-11-29 03:52 | CTR_ITS ---
PROCEDURE INFORMATION: Exam: CTA Chest With Contrast CTA Abdomen and Pelvis With Contrast Exam date and time: 11/29/2024 4:03 AM Age: 74 years old Clinical indication: Chest pressure; Other: N/a; Abdominal pain; Prior surgery; Surgery date: 6+ months; Surgery type: Pelvic fixation; Chest and epigastric pain with hypertension; Additional info: Chest/abd pain, HTN, concern for aortic dissection TECHNIQUE: Imaging protocol: Computed tomographic angiography of the chest with contrast. Exam focused on the arteries. Computed tomographic angiography of the abdomen and pelvis with contrast. Exam focused on the arteries. 3D rendering (Not supervised by radiologist): MIP and/or 3D reconstructed images were created by the technologist. Radiation optimization: All CT scans at this facility use at least one of these dose optimization techniques: automated exposure control; mA and/or kV adjustment per patient size (includes targeted exams where dose is matched to clinical indication); or iterative reconstruction. Contrast material: OMNI 350; Contrast volume: 100 ml; Contrast route: INTRAVENOUS (IV); COMPARISON: CT chest abdpel w/*[id number] 05/17/2023 2:09 PM RADIATION DOSE METRICS: Total DLP (mGy-cm): 1664.27 FINDINGS: VASCULATURE: Pulmonary arteries: Normal. No pulmonary emboli. Aorta: No aortic aneurysm. No aortic dissection. Scattered calcific plaque most notably at the arch of the thoracic aorta is present. Celiac trunk and mesenteric arteries: No occlusion or significant stenosis. Renal arteries: No occlusion or significant stenosis. There is an accessory right renal artery in addition to the right main renal artery. There are 2 left renal arteries perfusing the upper and lower poles respectively. Right iliac arteries: No occlusion or significant stenosis. Left iliac arteries: No occlusion or significant stenosis. CHEST: Lungs: There is minimal dependent linear atelectasis. No consolidation. No masses. Pleural spaces: Unremarkable. No pneumothorax. No pleural effusion. Heart: There is no evidence of coronary artery calcification. No cardiomegaly. No pericardial effusion. ABDOMEN AND PELVIS: Liver: No mass. Gallbladder and biliary ducts: Unremarkable. No calcified stones. No ductal dilation. Pancreas: Unremarkable. No mass. No ductal dilation. Spleen: Unremarkable. No splenomegaly. Adrenal glands: Unremarkable. No mass. Kidneys and ureters: There is a punctate 2 mm calculus in the lower pole of the left kidney. No solid mass. No hydronephrosis. Stomach and bowel: There is mild sigmoid diverticulosis. There is no evidence of acute diverticulitis. Appendix: No evidence of appendicitis. A normal-appearing appendix is identified. Intraperitoneal space: Unremarkable. No free air. No significant fluid collection. Urinary bladder: Unremarkable. No mass. Reproductive: Unremarkable as visualized. There is moderate enlargement of the prostate gland. Lymph nodes: Unremarkable. No enlarged lymph nodes. Bones/joints: There is hardware fixating the posterior column of the left acetabulum. No acute fracture. Soft tissues: There are bilateral small fat containing inguinal hernias. CT/CT [facility] [id number] IMPRESSION: 1. Unremarkable CTA chest, abdomen, and pelvis indicating no significant vascular pathology. 2. Moderately enlarged prostate. 3. There is a 2 mm punctate calculus in the lower pole of the left kidney.
--- OUTSIDE RECORDS SUMMARY | 2024-11-29 03:53 | XMS_ITS | Patient Health Record ---
Author Organization [facility] Address [address] [place] [address] Care Team Providers Care Certified Nursing Attendant Name Role Phone Sun Cisse Unavailable [phone] Migration, Provider Unavailable Unavailable Mateo Hay Unavailable Allergies Allergen (clinical drug ingredient) Drug/Non Drug Allergy documented on EMR Reaction Allergy Type Onset Date Status Penicillin allergy Drug Allergy Active Substance with penicillin structure and antibacterial mechanism of action (substance) Penicillins Itching (finding) Drug Allergy Active Reason For Referral Reason SCREENING FOR MALIGN ANT NEOPLASM OF COLON Diagnosis 1 Encounter for screen ing for malignant neoplasm of colon (Z12.11) Referring Provider First Name Grayson Referring Provider Last Name Lester Referring Provider Speciality Family Med icine Referred Organization [facility] Referred Provider Mateo Hay Referred Address [address] [place] [phone], Referred Provider Specialty Internal Med rodolfo Referral Priority Routine Medications Medication SIG (Take, Route, Frequency, Duration) Notes Start Date End Date Status Ciprofloxacin HCl 500 MG Tablet 1 tablet Orally every 12 hrs; Duration: 3 days Not-Taking Omeprazole *[facility]* Not-Taking Celecoxib 200 MG Capsule 1 capsule Orally Once a day *Pick strength-form from [facility] for eRX* Not-Taking Tylenol *Pick strength-form from [facility] for eRX* Not-Taking Amlodipine *Reorder from [facility] for eRx and Interaction Alerts* Not-Taking Olmesartan-amLODIPin e-HCTZ 40-10-12.5 MG Tablet 1 tablet Orally Once a day Active Omeprazole 20 MG Capsule Delayed Release 1 capsule 30 minutes before morning meal Orally Once a day Active amLODIPine-Atorvasta tin 10-40 MG Tablet 1 tablet Orally Once a day Not-Taking Tamsulosin HCl 0.4 MG Capsule 1 capsule Orally Once a day Not-Taking oxyCODONE HCl 5 MG Tablet 1 tablet as needed Orally every 6 hrs Active Celecoxib 200 MG Capsule 1 capsule with food Orally bid on hold since 08/29/22 Active Social History Tobacco Use: Social History Observation Description Date Details (start date - stop date) Former Smoker NA - NA Social History Depression Screening Social Info Question Answer Notes depression screening findings Findings Negative (0 -4) 07/24/24 PHQ-9 Little interest or p odette in doing things Not at all Feeling down, depressed, or hopeless Not at all Trouble falling or staying asleep, or sleeping t oo much Not at all Feeling tired or having little energy Not at all Poor appetite or overeating Not at all Feeling bad about yourself, or that you are a failure, or have let yourself or your family down Not at all Trouble concentrating on thi ngs, such as reading the newspaper or watching television Not at all Moving or speaking so slowly that other people could have noticed. Or the opposite ? being so fidgety or restless that you have been moving around a lot more than usual Not at all Thoughts that you would be b crystal off , or of hurting yourself in some way Not at all Total Score 0 Tobacco Use: Social Info Question Answer Notes Tobacco Control (Standard) Tobacco use: Former smoker How long has it been since you last smoked? Greater than 10 years Section Notes: CIME Dep/tob - 07/24/24 Problems Problem Type SNOMED Code ICD Code Onset Dates Problem Status W/U Status Risk Notes Problem Obstructive uropathy (6671110) Other obstructive and reflux uropathy (N13.8) Active confirmed Problem Calculus of kidney (30536750) Calculus of kidney (N20.0) Active confirmed Problem Lower urinary tract symptoms due to benign prostatic hypertrophy (72434305664133) Benign prostatic hyperplasia with lower urinary tract symptoms (N40.1) Active confirmed Problem Nephrolithiasis (62168246) Nephrolithiasis (N20.0) Active confirmed Problem Screening for malignant neoplasm of prostate (591924304) Prostate cancer screening (Z12.5) Active confirmed Problem Kidney stone (22695859) Kidney stone (N20.0) Active confirmed Problem Ureteric stone (33254786) Left ureteral stone (N20.1) Active confirmed Problem History of nephrolithiasis (830445370) History of nephrolithiasis (Z87.442) Active confirmed Problem Hydronephrosis (53214214) Hydronephrosis, left (N13.30) Active confirmed Problem Renal colic (6349158) Renal colic on left side (N23) Active confirmed Problem History of polyp of colon (situation) (708243966) Personal history of colonic polyps (Z86.0100) Active confirmed Vital Signs Heart Rate 63 /min 07/24/2024 Temperature 97.6 degrees Fahrenheit 07/24/2024 Height-cm 182.88 cm 07/24/2024 Oximetry 96 % 07/24/2024 Blood pressure diastolic 80 mm Hg 07/24/2024 Weight-kg 96.25 kg 07/24/2024 Height 72.00 in 07/24/2024 Blood pressure systolic 160 mm Hg 07/24/2024 Weight 212.2 lbs 07/24/2024 BMI 28.78 kg/m2 07/24/2024 Encounters Encounter Location Date Provider Diagnosis [facility] [address] [place] [phone] 07/24/2024 Mateo Hay Personal history of colonic polyps Z86.0100 ; Encounter for diagnostic endoscopy Z01.818 and Depression screen Z13.31 Migrated_Facility 0 0 03/07/2024 Provider Migration Migrated_Facility 0 0 03/08/2024 Provider Migration Assessments Encounter Date Diagnosis (ICD Code) Assessment Notes Treatment Notes Treatment Clinical Notes Section Notes 07/24/2024 Personal history of colonic polyps (ICD-10 - Z86.0100) --- to be completed at [facility] -x--to be completed at [facility] ---to be completed at [facility] ---to be completed at [facility] 07/24/2024 Encounter for diagnostic endoscopy (ICD-10 - Z01.818) 07/24/2024 Depression screen (ICD-10 - Z13.31) Plan Of Treatment Pending Test Test Name Order Date Electrocardiogram 12 Lead Tracing-[id number] 08/27/2022 Future Test Test Name Order Date PSA Diagnostic--[id number] 08/26/2023 Abdomen [id number] 08/26/2023 Insurance Providers Payer Name Payer Address Payer Phone Subscriber Number Group Number Insured Name Patient Relationship to Insured Coverage Start Date Coverage End Date [facility] [employer] [address] [address] [place] [address] [id number] Víctor James Self - patient is the insured [place] [address] [address] [place] [address] [id number] Víctor James Self - patient is the insured Medical (General) History Medical History History ICD Code hypertension Arthritis nephrolithiasis Surgical History Surgery Date(Month/Year) back surgery 02/2000 Cysto, lithotripsy, stone extraction, st ent ruptured disc Since 1999 R arm broken R ankle L knee surgery L hip Hospitalization History Reason Date(Month/Year) surgery
[2024-11-29 03:54] LABS: Hematocrit 40.8 % (37-53); Hemoglobin 13.70 g/dL (11.27-16.99); Mean Corpuscular HGB Conc 33.6 g/dL (30-55); Mean Corpuscular Hemoglobin 32.2 pg (27-33); Mean Corpuscular Volume 96.0 fl (82-101); Nucleated Red Blood Cells % 0 %; Platelet Count 318 10^3/cmm (157-399); Red Blood Count 4.25 10^6/uL (3.85-5.65); White Blood Count 6.51 10^3/uL (3.29-11.43)
--- OUTSIDE RECORDS SUMMARY | 2024-11-29 03:54 | XMS_ITS | Encounter Summary ---
Author Organization [facility] Address [address] [place] [address] Care Team Providers Care Site Operations Manager Name Role Phone Unavailable Primary Care Provider Unavailabl e Encounter Details Date Type Department Care Team (Late st Contact Info) Description 07/01/2007 Outpatient Historical [facility]- 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
--- OUTSIDE RECORDS SUMMARY | 2024-11-29 03:54 | XMS_ITS | Clinical Summary ---
Author Organization [facility] Address [address] [place] [address] Care Team Providers Care Postal Service Sectional Center Manager Name Role Phone Unavailable Primary Care Provider Unavailabl e Allergies Active Allergy Reactions Criticality Noted Date Comments Amoxicillin Rash Low 07/02/2008 Penicillins Rash Low 07/02/2008 Medications LOTREL PO Take by mouth. Activ e OMEPRAZOLE PO Take by mouth. A ctive MELOXICAM (MOBIC ORAL) Take by mouth. Activ e Betamethasone-Robbie cipotriene (TACLONEX) 0.005-0.064 % Suspension Apply 1 cm to affected area daily. 120 Gram 1 6 Active betamethasone dipropionate (DIPROSONE) 0.05 % Cream Apply to affected area 2 times daily. 60 Gram 2 6 Active betamethasone-robbie cipotriene (TACLONEX) 0.005-0.064 % Ointment APPLY A 1 CENTIMETER BEAD TO THE AFFECTED AREA EVERY DAY 60 Gram 2 6 Active Active Problems No known active problems Family History Medical History Relation Name Comments Diabetes Maternal Grandfather Diabetes Maternal Grandmother Relation Name Status Comments Maternal Grandfather Maternal Grandmother Social History Tobacco Use Types Packs/Day Years Used Date Smoking Tobacco: Never Alcohol Use Standard Drinks/Week Comments Yes 0.8 (1 standard drink = 0.6 oz p ure alcohol) Sex and Gender Information Value Date Recorded Sex Assigned at Not on file 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 Gender Identity Not on file Sexual Orientation Not on file Last Filed Vital Signs Vital Sign Reading Time Taken Comments Blood Pressure 147/92 08/25/2015 9:07 AM CDT Pulse 64 08/25/2015 9:07 AM CDT Temperature - - Respiratory Rate - - Oxygen Saturation - - Inhaled Oxygen Concentration - - Weight 88.5 kg (195 lb) 08/25/2015 9:07 AM CDT Height 182.9 cm (6') 08/25/2015 9:07 AM CDT Body Mass Index 26.45 08/25/2015 9:07 AM CDT Plan of Treatment Health Maintenance Due Date Last Done Comments DTAP/TDAP/TD VACCINES (1 - Tdap) 1968 COLORECTAL SCREENING 1994 Colorectal Cancer Screening 1994 FIT-DNA Q 3 years 1994 FIT/FOBT Q 1 year 1994 Flex Sig/CT Colonography Q 5 years 1994 PNEUMOCOCCAL VACCINE 50+ YEARS (1 of 1 - PCV) 09/22/19 00 ZOSTER VACCINE (1 of 2) 09/22/1999 RSV VACCINE (60+ or ) (1 - 1-dose 75+ series) 2024 INFLUENZA VACCINE (#1) 2024 Insurance MEDICARE PART A AND B BCBS SUPP
--- OUTSIDE RECORDS SUMMARY | 2024-11-29 03:54 | XMS_ITS | Encounter Summary ---
Author Organization [facility] Address [address] [place] [address] Care Team Providers Care Duct Maker Name Role Phone Unavailable Primary Care Provider Unavailabl e Encounter Details Date Type Department Care Team (Late st Contact Info) Description 10/31/2006 Outpatient Historical [facility] Dermatology- 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
--- OUTSIDE RECORDS SUMMARY | 2024-11-29 03:54 | XMS_ITS | Encounter Summary ---
Author Organization [facility] Address [address] [place] [address] Care Team Providers Care Apprenticeship Consultant Name Role Phone Unavailable Primary Care Provider Unavailabl e Encounter Details Date Type Department Care Team (Late st Contact Info) Description 05/02/2004 Outpatient Historical [facility] [address] [place] [address] [place] [address] Gerson Barton MD [address] [place] [address] SEBORRHEIC KERATOSIS INFLAMED (Primary Dx) Social History Tobacco Use Types Packs/Day Years Used Date Smoking Tobacco: Never Assessed Sex and Gender Information Value Date Recorded Sex Assigned at Not on file 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
--- OUTSIDE RECORDS SUMMARY | 2024-11-29 03:54 | XMS_ITS | Encounter Summary ---
Author Organization [facility] Address [address] [place] [address] Care Team Providers Care Load Haul Dump Operator Name Role Phone Unavailable Primary Care Provider Unavailabl e Encounter Details Date Type Department Care Team (Late st Contact Info) Description 10/31/2006 Outpatient [facility] [address] [place] [address] 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
--- OUTSIDE RECORDS SUMMARY | 2024-11-29 03:54 | XMS_ITS | Encounter Summary ---
Author Organization [facility] Address [address] [place] [address] Care Team Providers Care Career Services Director Name Role Phone Unavailable Primary Care Provider Unavailabl e Encounter Details Date Type Department Care Team (Late st Contact Info) Description 07/22/2001 Outpatient Historical [facility] Dermatology- [address] [place] 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
--- OUTSIDE RECORDS SUMMARY | 2024-11-29 03:54 | XMS_ITS | Encounter Summary ---
Author Organization [facility] Address [address] [place] [address] Care Team Providers Care Demand Planner Name Role Phone Unavailable Primary Care Provider Unavailabl e Encounter Details Date Type Department Care Team (Late st Contact Info) Description 05/02/2006 Outpatient Historical [facility] [address] [place] [address] 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
--- OUTSIDE RECORDS SUMMARY | 2024-11-29 03:54 | XMS_ITS | Encounter Summary ---
Author Organization [facility] Address [address] [place] [address] Care Team Providers Care Auctioneer Automobile Name Role Phone Unavailable Primary Care Provider Unavailabl e Encounter Details Date Type Department Care Team (Late st Contact Info) Description 12/28/2003 Outpatient Historical [facility] Dermatology- [address] [place] 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
--- OUTSIDE RECORDS SUMMARY | 2024-11-29 03:54 | XMS_ITS | Encounter Summary ---
Author Organization [facility] Address [address] [place] [address] Care Team Providers Care Basting Machine Operator Name Role Phone Unavailable Primary Care Provider Unavailabl e Encounter Details Date Type Department Care Team (Late st Contact Info) Description 08/15/2005 Outpatient Historical [facility] Dermatology- [address] [place] 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
--- OUTSIDE RECORDS SUMMARY | 2024-11-29 03:54 | XMS_ITS | Encounter Summary ---
Author Organization [facility] Address [address] [place] [address] Care Team Providers Care Refinery Operator Reforming Unit Name Role Phone Unavailable Primary Care Provider Unavailabl e Encounter Details Date Type Department Care Team (Late st Contact Info) Description 08/15/2005 Outpatient Historical [facility] [address] [place] [address] 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
--- OUTSIDE RECORDS SUMMARY | 2024-11-29 03:54 | XMS_ITS | Encounter Summary ---
Author Organization [facility] Address [address] [place] [address] Care Team Providers Care Retail Store Manager Name Role Phone Unavailable Primary Care Provider Unavailabl e Encounter Details Date Type Department Care Team (Late st Contact Info) Description 11/03/2002 Outpatient Historical [facility] Dermatology- [address] [place] [address] [place] [address] Gerson Barton MD [address] [place] [address] ACTINIC KERATOSIS (Primary Dx) Social History Tobacco Use Types Packs/Day Years Used Date Smoking Tobacco: Never Assessed Sex and Gender Information Value Date Recorded Sex Assigned at Not on file Legal Sex Male 5:[address] Gender Identity Not on file Sexual Orientation Not on file documented as of this encounter Plan of Treatment Not on file documented as of this encounter Visit Diagnoses Diagnosis Actinic keratosis- Primary documented in this encounter
--- OUTSIDE RECORDS SUMMARY | 2024-11-29 03:54 | XMS_ITS | Clinical Summary ---
Author Organization [facility] Address [address] Attn: [place] [address] Care Team Providers Care Mechanics Supervisor Name Role Phone Unavailable Primary Care Provider Unavailabl e Allergies Active Allergy Reactions Criticality Noted Date Comments Amoxicillin Rash Low 07/02/2008 Penicillins Rash Low 07/02/2008 Medications betamethasone-robbie cipotriene (TACLONEX) 0.005-0.064 % Ointment APPLY A 1 CENTIMETER BEAD TO THE AFFECTED AREA EVERY DAY 60 Gram 2 6 Active Betamethasone-Robbie cipotriene 0.005-0.064 % Suspension Apply 1 cm to affected area daily. 120 Gram 1 6 Active betamethasone dipropionate (DIPROSONE) 0.05 % Cream Apply to affected area 2 times daily. 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
--- OUTSIDE RECORDS SUMMARY | 2024-11-29 03:54 | XMS_ITS | Encounter Summary ---
Author Organization [facility] Address [address] [place] [address] Care Team Providers Care Box Stamper Name Role Phone Unavailable Primary Care Provider Unavailabl e Encounter Details Date Type Department Care Team (Late st Contact Info) Description 12/29/2007 Outpatient Historical [facility] [address] [facility] [address] [place] [address] Gerson Barton MD [address] [place] [address] Social History Tobacco Use Types Packs/Day Years Used Date Smoking Tobacco: Never Assessed Sex and Gender Information Value Date Recorded Sex Assigned at Not on file 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 Gender Identity Not on file Sexual Orientation Not on file documented as of this encounter Plan of Treatment Not on file documented as of this encounter Procedures Procedure Name Priority Date/Time Associated Diagnosis Comments PATHOLOGY Routine 12/29/2007 9:28 AM CDT documented in this encounter Results * PATHOLOGY (12/29/2007 9:28 AM CDT) PATHOLOGY/CYT OLOGY REPORT [facility] [address] [facility] [address] Patient: VÍCTOR FINNEY Accn No: [id number] Collected: 12/29/2007 9:28:00 AM DERMATOPATHOLOGY FINAL REPORT Diagnosis BASAL CELL CARCINOMA, SUPERFICIAL AND NODULAR PATTERNS (173.5) (LEFT POSTERIOR SHOULDER) Gerson Barton MD (Electronically signed by) Verified: 12/31/07 RP /WLS Clinical Information Basal cell carcinoma. Treated by C&D x 1. Specimen Source LEFT POSTERIOR SHOULDER Gross Description Received in formalin is a pinkish-white papule measuring 1.2 x 1.1 x 0.2 cm. The specimen is sectioned into six pieces and submitted in cassette A1. *Gross examination performed at [facility], [address] [place] [id number] DI RP /WLS Microscopic Description Sections show a proliferation of atypical and peripherally palisaded basaloid cells, arrayed as clusters near the junctional zone and as nodular aggregations in the dermis. INTERFACE SYSTEM 12/29/2007 9:28 AM CDT us Gerson Barton MD PATHOLOGY/CYTOLOGY ORDERABL ES Final Result INTERFACE SYSTEM Refer to clinic/hospital department documented in this encounter Visit Diagnoses Not on filedocumented in this encounter
--- OUTSIDE RECORDS SUMMARY | 2024-11-29 03:54 | XMS_ITS | Encounter Summary ---
Author Organization [facility] Address [address] [place] [address] Care Team Providers Care Informatics Physician Name Role Phone Unavailable Primary Care Provider Unavailabl e Encounter Details Date Type Department Care Team (Late st Contact Info) Description 04/14/1999 Outpatient Historical [facility] Dermatology- [address] [place] 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
--- OUTSIDE RECORDS SUMMARY | 2024-11-29 03:54 | XMS_ITS | Encounter Summary ---
Author Organization [facility] Address [address] [place] [address] Care Team Providers Care Claim Inspector Name Role Phone Unavailable Primary Care Provider Unavailabl e Encounter Details Date Type Department Care Team (Late st Contact Info) Description 05/02/2006 Outpatient Historical [facility] Dermatology- [address] [place] 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
--- OUTSIDE RECORDS SUMMARY | 2024-11-29 03:54 | XMS_ITS | Encounter Summary ---
Author Organization [facility] Address [address] [place] [address] Care Team Providers Care [place] Facer Name Role Phone Unavailable Primary Care Provider Unavailabl e Encounter Details Date Type Department Care Team (Late st Contact Info) Description 07/08/2007 [facility]patient [facility] [address] [place] [address] [place] [address] Gerson Barton MD [address] [place] [address] Social History Tobacco Use Types Packs/Day Years Used Date Smoking Tobacco: Never Assessed Sex and Gender Information Value Date Recorded Sex Assigned at Not on file 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
--- OUTSIDE RECORDS SUMMARY | 2024-11-29 03:54 | XMS_ITS | Encounter Summary ---
Author Organization [facility] Address [address] [place] [address] Care Team Providers Care Shearer Screen Measurer And Trimmer Name Role Phone Unavailable Primary Care Provider Unavailabl e Encounter Details Date Type Department Care Team (Late st Contact Info) Description 07/07/2007 Outpatient Historical [facility] Dermatology- [address] [place] 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
--- OUTSIDE RECORDS SUMMARY | 2024-11-29 03:54 | XMS_ITS | Encounter Summary ---
Author Organization [facility] Address [address] [place] [address] Care Team Providers Care Recovery Auditor Name Role Phone Unavailable Primary Care Provider Unavailabl e Encounter Details Date Type Department Care Team (Late st Contact Info) Description 07/02/2007 Outpatient Historical [facility] [address] [place] [address] [place] [address] Gerson Barton MD [address] [place] [address] Social History Tobacco Use Types Packs/Day Years Used Date Smoking Tobacco: Never Assessed Sex and Gender Information Value Date Recorded Sex Assigned at Not on file Legal 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
[2024-11-29] MEDS: morphine 4 mg/mL SDV 1 mL 8 MG IVP (03:59)
[2024-11-29] MEDS: ondansetron 2 mg/ML SDV 2 mL 4 MG IVP (03:59)
[2024-11-29 04:13] LABS: Troponin(5th) Baseline 23 ng/L (0-15)
[2024-11-29 04:25] LABS: Alanine Aminotransferase 42 U/L (0-41); Albumin Level 4.3 g/dL (3.5-5.2); Alkaline Phosphatase 35 U/L (40-130); Anion Gap 18.7 (5-19); Aspartate Amino Transferase 28 U/L (0-40); Blood Urea Nitrogen 19 mg/dL (8-23); Calcium 9.8 mg/dL (8.5-10.5); Carbon Dioxide 22 mmol/L (22-29); Chloride 104 mmol/L (98-107); Creatinine Clr Calc Pharmacy 55.0906; Globulin 3.2 g/dL (1.3-4.6); Glucose 138 mg/dL (65-115); Lipase 55 U/L (13-60); Osmolality Calculated 296 mOsm/kg (285-295); Potassium 3.7 mmol/L (3.5-5.1); Sodium 141 mmol/L (136-145); Total Protein 7.5 g/dL (6.6-8.7)
[2024-11-29] MEDS: nitroglycerin 1 gm/inch oint Pkt 1 INCH TOPICAL (04:27)
--- NOTE | 2024-11-29 04:35 | ECG_ITS ---
[employer] [employer] 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 Measurements Intervals [place] Rate: 71 P: 43 GA: 165 QRS: -6 QRSD: 107 T: -19 QT: 409 QTc: 445 Interpretive Statements SINUS RHYTHM INFERIOR MYOCARDIAL INFARCTION , OF INDETERMINATE AGE [40+ ms Q WAVE AND/OR ST/T ABNORMALITY IN II/aVF] Diffuse nonspecific T wave changes Compared to ECG 11/29/2024 03:40:02 Myocardial infarct finding now present Electronically Signed On 11-29-2024 18:35:05 CDT by Opal Kamara M.D. [email or web address]
[2024-11-29 05:32] LABS: Troponin 5 2HR 19.81 ng/L (0-15)
[2024-11-29 05:33] LABS: Troponin 5 2HR Delta -3.19 ABS# (0-10)
--- NOTE | 2024-11-29 06:25 | USCV_ITS ---
Víctor James Age: 74 Gender: M : 1950 Exam Date: 11/29/2024 14:01 Ordering Phys: Oral Wrgiht MD Technologist: Osmin Lomeli Exam Location: [facility] Indication: chest pain, nonspecific EKG changes, CAD risk BP: 108 / 62 HR: 57 Rhythm: Sinus Technical Quality: Adequate MEASUREMENTS (Male / Female) Normal Values 2D ECHO LV Diastolic Diameter PLAX 4.6 cm 4.2 - 5.9 / 3.9 - 5.3 cm IVS Diastolic Thickness 1.4 cm 0.6 - 1.0 / 0.6 - 0.9 cm IVS Systolic Thickness 1.7 cm LVPW Diastolic Thickness 1.4 cm 0.6 - 1.0 / 0.6 - 0.9 cm LVPW Systolic Thickness 1.7 cm LVOT Diameter 2.0 cm LV Ejection Fraction 2D Teich 75.4 % LV Ejection Fraction MOD 4C 81.7 % LV Ejection Fraction MOD 2C 60.2 % LV Ejection Fraction 2C AL 61.8 % LA Diameter 3.3 cm RA Systolic Volume 4C AL 36.8 ml RA Systolic Volume 4C MOD 32.9 ml LA Sys Volume AL 60.8 cm cubed LA Sys Volume Index AL 27.4 cm cubed/m squared Aorta at Sinotubular Diameter 2.3 cm IVC Diameter 1.7 cm M-MODE LA Ao Ratio MM 1.5 AV Cusp Separation MM 1.8 cm DOPPLER AV Peak Velocity 195.7 cm/s LVOT Peak Velocity 136.0 cm/s AV Area Cont Eq vti 2.3 cm squared AV Area Cont Eq pk 2.2 cm squared MV Peak Velocity 122.0 cm/s MV Area PHT 4.7 cm squared Mitral E to A Ratio 1.3 TV Peak Velocity 377.0 cm/s TR Peak Velocity 388.0 cm/s TR Peak Gradient 60.2 mmHg TR Mean Velocity 300.0 cm/s TR Mean Gradient 38.1 mmHg TR Velocity Time Integral 107.1 cm PV Peak Velocity 82.3 cm/s RV Ejection Time 0.3 s FINDINGS Left Ventricle Normal left ventricular size and systolic function, EF 62%.mild left ventricular hypertrophy. .No regional wall motion abnormalities. Right Ventricle The right ventricle is normal in size and function. Right Atrium The right atrium is normal in size. Left Atrium Mildly increased left atrial size. Mitral Valve Mild mitral valve regurgitation. Aortic Valve Trace aortic valve regurgitation. Aortic valve sclerosis. Tricuspid Valve Trace tricuspid valve regurgitation. Estimated pulmonary artery peak systolic pressure 57 mmHg. This could be an overestimation because of the poor Doppler signals Pulmonic Valve Mild pulmonary valve regurgitation. Pericardium Normal pericardium without effusion. Aorta Normal aortic annulus size. IVC Normal inferior vena cava. CONCLUSIONS Normal left ventricular size and systolic function, EF 62%.mild left ventricular hypertrophy. .No regional wall motion abnormalities. Mildly increased left atrial size. Mild mitral valve regurgitation. Trace aortic valve regurgitation. Aortic valve sclerosis. Trace tricuspid valve regurgitation. Estimated pulmonary artery peak systolic pressure 57 mmHg. This could be an overestimation because of the poor Doppler signals. Mild pulmonary valve regurgitation. There is no pericardial effusion. There are no intracardiac masses. Compared to the previous study from 09/20/2020, pulmonary hypertension appears to be new. Because of the differences in technical quality the reliability is questionable of this finding is questionable. Dr Opal Kamara MD [facility] (Electronically Signed) Final Date: 29 November 2024 15:28 S
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
--- NOTE | 2024-11-29 07:47 | PC.NURSE ---
Patient transferred from the ED to CSU at 0748.
[2024-11-29 08:19] LABS: Estmated Average Glucose 123; Hemoglobin A1C 5.9 % (4.0-6.0)
[2024-11-29 08:24] LABS: Cholesterol 171 mg/dL (0-200); HDL Cholesterol 62 mg/dL (60-100); Triglycerides 44 mg/dL (0-150); VLDL Cholestrol Calculation 9 mg/dL (0-30)
--- OUTSIDE RECORDS SUMMARY | 2024-11-29 08:30 | XMS_ITS | Encounter Summary ---
Author Organization [facility] Address [address] [place] [address] Care Team Providers Care Technology Analyst Name Role Phone Unavailable Primary Care Provider Unavailabl e Encounter Details Date Type Department Care Team (Late st Contact Info) Description 12/28/2003 Outpatient Historical [facility] Dermatology- [address] [place] [address] Gerson Barton MD [address] [place] [address] ACTINIC KERATOSIS (Primary Dx) Social History Tobacco Use Types Packs/Day Years Used Date Smoking Tobacco: Never Assessed Sex and Gender Information Value Date Recorded Sex Assigned at Not on file Legal Sex Male 5:58 AM TRAINMASTER Gender Identity Not on file Sexual Orientation Not on file documented as of this encounter Plan of Treatment Not on file documented as of this encounter Visit Diagnoses Diagnosis Actinic keratosis- Primary documented in this encounter
--- OUTSIDE RECORDS SUMMARY | 2024-11-29 08:30 | XMS_ITS | Encounter Summary ---
Author Organization [facility] Address [address] [place] [address] Care Team Providers Care Gold Burnisher Name Role Phone Unavailable Primary Care Provider Unavailabl e Encounter Details Date Type Department Care Team (Late st Contact Info) Description 11/03/2002 Outpatient Historical [facility] Dermatology- [address] [place] 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
--- OUTSIDE RECORDS SUMMARY | 2024-11-29 08:30 | XMS_ITS | Encounter Summary ---
Author Organization [facility] Address [address] [place] [address] Care Team Providers Care Lunchroom Monitor Name Role Phone Unavailable Primary Care Provider Unavailabl e Encounter Details Date Type Department Care Team (Late st Contact Info) Description 07/07/2007 Outpatient Historical [facility] Dermatology- [address] [place] 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
--- OUTSIDE RECORDS SUMMARY | 2024-11-29 08:31 | XMS_ITS | Clinical Summary ---
Author Organization [facility] Address [address] 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
--- OUTSIDE RECORDS SUMMARY | 2024-11-29 08:31 | XMS_ITS | Encounter Summary ---
Author Organization [facility] Address [address] [place] [address] Care Team Providers Care Linotypist Name Role Phone Unavailable Primary Care Provider Unavailabl e Encounter Details Date Type Department Care Team (Late st Contact Info) Description 08/15/2005 Outpatient Historical [facility] Dermatology- [address] [place] 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
--- OUTSIDE RECORDS SUMMARY | 2024-11-29 08:31 | XMS_ITS | Encounter Summary ---
Author Organization [facility] Address [address] [place] [address] Care Team Providers Care Senior Rd Engineer Name Role Phone Unavailable Primary Care Provider Unavailabl e Encounter Details Date Type Department Care Team (Late st Contact Info) Description 07/08/2007 Outpatient [facility] [address] [place] [address] [place] [address] Gerson Barton MD [address] [place] [address] Social History Tobacco Use Types Packs/Day Years Used Date Smoking Tobacco: Never Assessed Sex and Gender Information Value Date Recorded Sex Assigned at Not on file Legal Sex Male 5:58 AM SCRATCH BRUSHER Gender Identity Not on file Sexual Orientation Not on file documented as of this encounter Plan of Treatment Not on file documented as of this encounter Visit Diagnoses Not on filedocumented in this encounter
--- OUTSIDE RECORDS SUMMARY | 2024-11-29 08:31 | XMS_ITS | Encounter Summary ---
Author Organization [facility] Address [address] [place] [address] Care Team Providers Care Fraud Analyst Name Role Phone Unavailable Primary Care Provider Unavailabl e Encounter Details Date Type Department Care Team (Late st Contact Info) Description 10/31/2006 [facility]patient [facility] [address] 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
--- OUTSIDE RECORDS SUMMARY | 2024-11-29 08:31 | XMS_ITS | Clinical Summary ---
Author Organization [facility] Address [address] Attn: [place] [address] Care Team Providers Care Railroad Crane Operator Name Role Phone Unavailable Primary Care [...] on file Legal Sex Male 7:51 AM SEARCH DEVELOPER Gender Identity Not on file Sexual Orientation [...]
--- OUTSIDE RECORDS SUMMARY | 2024-11-29 08:31 | XMS_ITS | Encounter Summary ---
Author Organization [facility] Address [address] [place] [address] Care Team Providers Care Regulatory Affairs Strategy Specialist Name Role Phone Unavailable Primary Care Provider Unavailabl e Encounter Details Date Type Department Care Team (Late st Contact Info) Description 04/14/1999 Outpatient Historical [facility] Dermatology- [address] [place] [address] [place] [address] Gerson Barton MD [address] [place] [address] Actinic keratosis (Primary Dx); Other psoriasis Social History Tobacco Use Types Packs/Day Years Used Date Smoking Tobacco: Never Assessed Sex and Gender Information Value Date Recorded Sex Assigned at Not on file Legal Sex Male 5:58 AM SHIRT MAKER Gender Identity Not on file Sexual Orientation Not on file documented as of this encounter Plan of Treatment Not on file documented as of this encounter Visit Diagnoses Diagnosis Actinic keratosis- Primary Other psoriasis documented in this encounter
--- OUTSIDE RECORDS SUMMARY | 2024-11-29 08:31 | XMS_ITS | Encounter Summary ---
Author Organization [facility] Address [address] [place] [address] Care Team Providers Care City Designer Name Role Phone Unavailable Primary Care Provider Unavailabl e Encounter Details Date Type Department Care Team (Late st Contact Info) Description 07/22/2001 Outpatient Historical [facility] Dermatology- [address] [place] 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
--- OUTSIDE RECORDS SUMMARY | 2024-11-29 08:31 | XMS_ITS | Encounter Summary ---
Author Organization [facility] Address [address] [place] [address] Care Team Providers Care Case Management Coordinator Name Role Phone Unavailable Primary Care Provider Unavailabl e Encounter Details Date Type Department Care Team (Late st Contact Info) Description 12/29/2007 Outpatient Historical [facility] [address] [facility] [address] [place] [address] Gerson Barton MD [address] [place] [address] Social History Tobacco Use Types Packs/Day Years Used Date Smoking Tobacco: Never Assessed Sex and Gender Information Value Date Recorded Sex Assigned at Not on file Legal Sex Male 5:58 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 Gender Identity Not on file Sexual Orientation Not on file documented as of this encounter Plan of Treatment Not on file documented as of this encounter Procedures Procedure Name Priority Date/Time Associated Diagnosis Comments PATHOLOGY Routine 12/29/2007 9:28 AM CDT documented in this encounter Results * PATHOLOGY (12/29/2007 9:28 AM CDT) PATHOLOGY/CYT OLOGY REPORT [facility] [address] [facility] [address] Patient: VÍCTOR FINNEY Accn No: [id number] Collected: 12/29/2007 9:28:00 AM DERMATOPATHOLOGY FINAL REPORT [...] in cassette A1. *Gross examination performed at [facility], [address] [place] [id number] DI RP /WLS Microscopic Description Sections show [...]
--- OUTSIDE RECORDS SUMMARY | 2024-11-29 08:31 | XMS_ITS | Encounter Summary ---
Author Organization [facility] Address [address] [place] [address] Care Team Providers Care Major Gifts Manager Name Role Phone Unavailable Primary Care Provider Unavailabl e Encounter Details Date Type Department Care Team (Late st Contact Info) Description 05/02/2004 Outpatient [facility] [address] [place] [address] [place] [address] Gerson Barton MD [address] [place] [address] SEBORRHEIC KERATOSIS INFLAMED (Primary Dx) Social History Tobacco Use Types Packs/Day Years Used Date Smoking Tobacco: Never Assessed Sex and Gender Information Value Date Recorded Sex Assigned at Not on file Legal Sex Male 5:58 AM BRISKET PULLER Gender Identity Not on file Sexual Orientation Not on file documented as of this encounter Plan of Treatment Not on file documented as of this encounter Visit Diagnoses Diagnosis Inflamed seborrheic keratosis- Primary documented in this encounter
--- OUTSIDE RECORDS SUMMARY | 2024-11-29 08:31 | XMS_ITS | Encounter Summary ---
Author Organization [facility] Address [address] [place] [address] Care Team Providers Care Paper Mill Superintendent Name Role Phone Unavailable Primary Care Provider Unavailabl e Encounter Details Date Type Department Care Team (Late st Contact Info) Description 05/02/2006 Outpatient Historical [facility] [address] [place] [address] 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
--- OUTSIDE RECORDS SUMMARY | 2024-11-29 08:31 | XMS_ITS | Encounter Summary ---
Author Organization [facility] Address [address] [place] [address] Care Team Providers Care Hoop Bending Machine Operator Name Role Phone Unavailable Primary Care Provider Unavailabl e Encounter Details Date Type Department Care Team (Late st Contact Info) Description 10/31/2006 Outpatient Historical [facility] Dermatology- [address] [address] [place] [address] Gerson Barton MD [address] [place] [address] Actinic Keratosis (Primary Dx); Other Psoriasis and Similar Disorders Social History Tobacco Use Types Packs/Day Years Used Date Smoking Tobacco: Never Assessed Sex and Gender Information Value Date Recorded Sex Assigned at Not on file Legal Sex Male 5:58 AM INFECTION CONTROL NURSE Gender Identity Not on file Sexual Orientation Not on file documented as of this encounter Plan of Treatment Not on file documented as of this encounter Visit Diagnoses Diagnosis Actinic keratosis- Primary Other psoriasis documented in this encounter
--- OUTSIDE RECORDS SUMMARY | 2024-11-29 08:31 | XMS_ITS | Encounter Summary ---
Author Organization [facility] Address [address] [place] [address] Care Team Providers Care Indigo Vat Tender Cloth Name Role Phone Unavailable Primary Care Provider Unavailabl e Encounter Details Date Type Department Care Team (Late st Contact Info) Description 08/15/2005 [facility] [address] [place] [address] 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
--- OUTSIDE RECORDS SUMMARY | 2024-11-29 08:31 | XMS_ITS | Encounter Summary ---
Author Organization [facility] Address [address] [place] [address] Care Team Providers Care Outside Energy Sales Representatives Name Role Phone Unavailable Primary Care Provider Unavailabl e Encounter Details Date Type Department Care Team (Late st Contact Info) Description 05/02/2006 Outpatient Historical [facility] Dermatology- [address] [place] [address] [place] [address] Gerson Barton MD [address] [place] [address] Malig Zachariah Skin Face NEC (Primary Dx); Malig Zachariah Scalp/Skin Neck; Malig Zachariah Skin Arm Social History Tobacco Use Types Packs/Day Years Used Date Smoking Tobacco: Never Assessed Sex and Gender Information Value Date Recorded Sex Assigned at Not on file Legal Sex Male 5:58 AM TILE MASON Gender Identity Not on file Sexual Orientation [...]
--- OUTSIDE RECORDS SUMMARY | 2024-11-29 08:31 | XMS_ITS | Encounter Summary ---
Author Organization [facility] Address [address] [place] [address] Care Team Providers Care Grocery Cashier Name Role Phone Unavailable Primary Care Provider Unavailabl e Encounter Details Date Type Department Care Team (Late st Contact Info) Description 07/01/2007 Outpatient Historical [facility] Dermatology- [address] [place] 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
--- OUTSIDE RECORDS SUMMARY | 2024-11-29 08:31 | XMS_ITS | Encounter Summary ---
Author Organization [facility] Address [address] [place] [address] Care Team Providers Care Nicking Machine Operator Name Role Phone Unavailable Primary Care Provider Unavailabl e Encounter Details Date Type Department Care Team (Late st Contact Info) Description 07/02/2007 Outpatient 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
[2024-11-29] MEDS: sodium chlor 0.45% +KCl 20 mEq 20 MEQ/1,000 ML BAG 125 MEQ IV (08:37)
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
[2024-11-29 11:24] LABS: Troponin 5 6HR 20.25 ng/L (0-15)
[2024-11-29 11:26] LABS: Troponin 5 6HR Delta -2.75 ng/L (0-12)
--- NOTE | 2024-11-29 17:58 | ECG_ITS ---
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 Interpretive Statements Lung unchanged pre/post procedure; Intraprocedure shortess of breath; Symptoms resoled by discharge PROCEDURE: The baseline electrocardiogram showed [normal sinus rhythm with some nonspecific T wave changes. At the baseline, the patient's blood pressure was 145/80 mm Hg with a heart rate of 68. The patient exercised for 5 minutes and 11 seconds on a standard Ignacio protocol. Patient attained a maximum heart rate of 135 beats per minute(93% of the maximum predicted heart rate) with a blood pressure at the peak exercise of 162/130 mm Hg. The EKG at the peak exercise revealed some nonspecific ST-T changes. Patient did not have any chest pain or any significant arrhythmis with the exercise Sestamibi was injected 1 minute prior to the peak exercise During the recovery phase, there were no new changes. Blood pressure at the end of the recovery phase was 155/72 mm Hg with a heart rate of 88 per minute. CONCLUSION: 1. Nonspecific EKG changes with [treadmill exercise 2. No exercise-induced chest pain or cardiac arrhythmia 3. Slight impaired exercise tolerance, attained a maximum of 7.0 METs 4. Sestamibi/Sestamibi perfusion results pending; see separate report. Electronically Signed On 12-01-2024 11:52:27 CDT by Opal Kamara M.D. [email or web address]
[2024-11-29] MEDS: ATORVASTATIN 10 MG TABLET 20 MG PO (20:21)
[2024-11-29 22:25] LABS: Thyroid Stimulating Hormone 1.15 uIU/mL (0.27-4.20)
--- NOTE | 2024-11-29 23:25 | ECG_ITS ---
[employer] Test Date: 2024-11-29 Pat Name: Víctor James Department: Room: 103 Gender: Male Rn Chronic: : 1950 Requested By: Cyrus Schneider Order Number: [id number] Gentry MD: Opal Kamara M.D. Measurements Intervals [place] Rate: 62 P: 29 [place]: 129 QRS: -20 QRSD: 104 T: 16 QT: 408 QTc: 417 Interpretive Statements SINUS RHYTHM Compared to ECG 11/29/2024 04:35:51 Myocardial infarct finding no longer present T-wave abnormality no longer present Electronically Signed On 11-30-2024 17:13:53 CDT by Opal Kamara M.D. [email or web address]
[2024-11-29 23:32] LABS: Iron 62 ug/dL (59-158); Total Iron Binding Capacity 315 mcg/dl; Unsaturated Iron Binding 253 ug/dL (112-347)
--- NOTE | 2024-11-29 23:36 | PC.NURSE ---
contacted MD for non symptomatic bradycardia MD order an EKG orders enter and performed
[2024-11-29 23:47] LABS: Vitamin B12 513 pg/mL (232-1245)
[2024-11-30 03:52] VITALS: BP 122/65; PULSE 72; RESP 16; TEMP 37.1; O2SAT 96
[2024-11-30 04:48] LABS: Hematocrit 35.2 % (37-53); Hemoglobin 11.80 g/dL (11.27-16.99); Mean Corpuscular HGB Conc 33.5 g/dL (30-55); Mean Corpuscular Hemoglobin 33.0 pg (27-33); Mean Corpuscular Volume 98.3 fl (82-101); Nucleated Red Blood Cells % 0 %; Platelet Count 245 10^3/cmm (157-399); Red Blood Count 3.58 10^6/uL (3.85-5.65); White Blood Count 5.30 10^3/uL (3.29-11.43)
[2024-11-30 05:05] LABS: Alanine Aminotransferase 33 U/L (0-41); Albumin Level 3.6 g/dL (3.5-5.2); Alkaline Phosphatase 27 U/L (40-130); Anion Gap 17.6 (5-19); Aspartate Amino Transferase 22 U/L (0-40); Blood Urea Nitrogen 15 mg/dL (8-23); Calcium 8.8 mg/dL (8.5-10.5); Carbon Dioxide 22 mmol/L (22-29); Chloride 110 mmol/L (98-107); Creatinine Clr Calc Pharmacy 54.5933; Globulin 2.4 g/dL (1.3-4.6); Glucose 92 mg/dL (65-115); Osmolality Calculated 300 mOsm/kg (285-295); Potassium 4.6 mmol/L (3.5-5.1); Sodium 145 mmol/L (136-145); Total Protein 6.0 g/dL (6.6-8.7)
[2024-11-30 05:06] LABS: Magnesium 1.9 mg/dL (1.7-2.3)
[2024-11-30 05:37] VITALS: PULSE 57
--- NOTE | 2024-11-30 07:12 | PC.NURSE ---
Patient at stress test at shift change.
[2024-11-30 07:19] VITALS: BP 155/72; PULSE 81
--- NOTE | 2024-11-30 07:42 | PC.NURSE ---
Patient returned from stress test at 0743.
[2024-11-30 07:50] VITALS: BP 139/79; PULSE 70; RESP 16; TEMP 37.1; O2SAT 95
--- NOTE | 2024-11-30 07:59 | P.PN_ITS ---
Subjective 2 Subjective: The patient is feeling okay. He had an exercise/sestamibi/sestamibi stress test. The test was essentially unremarkable. Patient continues remain stable with no recurrence of chest pain. Vital signs are stable. Medications: Medication Review Details: Current Medications Acetaminophen (Acetaminophen 325 Mg Tablet) 650 mg PO Q6H PRN PRN Reason: Mild/Mod Pain Or Temp >/= 101 Aspirin (Aspirin 325 Mg Ec Tablet) 81 mg PO DAILY COUNTS INCLUDE 234 BEDS AT THE [facility] Last Admin: 11/30/24 07:48 Dose: 81 mg Atorvastatin Calcium (Atorvastatin 10 Mg Tablet) 20 mg PO BEDTIME COUNTS INCLUDE 234 BEDS AT THE [facility] Last Admin: 11/29/24 20:22 Dose: Not Given Enoxaparin Sodium (Enoxaparin 40 Mg/0.4 Ml Syringe) 40 mg SUBCUT Q24H COUNTS INCLUDE 234 BEDS AT THE [facility] Last Admin: 11/30/24 07:48 Dose: 40 mg Esmolol HCl (Esmolol 100 Mg/10 Ml Sdv) 5 mg IV PRN PRN PRN Reason: See dose instructions Metoprolol Tartrate (Metoprolol Tartrate 1 Mg/1 Ml Sdv 5 Ml) 5 mg IV PRN PRN PRN Reason: See dose instructions Nitroglycerin (Nitroglycerin 0.4 Mg Sublingual Tablet) 0.4 mg SUBLINGUAL Q5M PRN PRN Reason: CHEST PAIN Nitroglycerin (Nitroglycerin 0.4 Mg Sublingual Tablet) 0.4 mg SUBLINGUAL Q5M PRN PRN Reason: CHEST PAIN Stop: 12/01/24 06:49 Ondansetron HCl (Ondansetron 2 Mg/Ml Sdv 2 Ml) 4 mg IVP Q8H PRN PRN Reason: vomiting, or N/V if npo Ondansetron HCl (Ondansetron 2 Mg/Ml Sdv 2 Ml) 4 mg IVP PRN PRN PRN Reason: NAUSEA Pantoprazole Sodium (Pantoprazole Dr 40 Mg Tablet) 40 mg PO BID COUNTS INCLUDE 234 BEDS AT THE [facility] Last Admin: 11/30/24 07:49 Dose: 40 mg Vitals/I&O/Wt Last Vital Signs Temp 98.8 F 11/30/24 07:50 Pulse 70 11/30/24 07:50 Resp 16 11/30/24 07:50 BP 139/79 11/30/24 07:50 Pulse Ox 95 11/30/24 07:50 O2 Del Method Room Air 11/30/24 07:50 11/29/24 11/30/24 11/30/24 22:59 06:59 14:59 Intake Total 1480 / 2320 Balance 1480 / 2320 Weight last 48 hrs Weight 202 lb 8 oz Weight 210 lb Weight 214 lb 4 oz Physical Exam 2 Narrative: GENERAL: The patient is alert and oriented times three. Not in any acute distress. HEENT: No significant pallor, icterus or lymphadenopathy.Oral cavity: There are no mucous membrane lesions. NECK: Trachea appears to be central. No masses noted. No JVD or thyromegaly appreciated. RESPIRATORY: Chest is symmetrical. No intercostals muscle retraction or any accessory muscle activation. There is no chest wall tenderness. Breath sounds are heard bilaterally. No rales or rhonchi heard. No evidence of any consolidation. BREASTS: Deferred. HEART: The heart sounds are normal. No S3 or S4. No significant murmurs. No pericardial rub ABDOMEN: No vessel pulsations or distention. No tenderness. No organomegaly appreciated. Bowel sounds are normally heard. : Deferred. RECTAL: Deferred. LYMPHATIC: No lymphadenopathy noted in the neck. EXTREMITIES: No edema or cyanosis. No clubbing. MUSCULOSKELETAL: No acute joint deformities or swelling SKIN: There are no significant rashes or ecchymosis NEUROPSYCHIATRIC: The patient is alert and oriented x3. Appears to be in a good mood. No tremors or rigidity noted. Data 11/30/24 04:21 11/30/24 04:21 Other Labs: Laboratory Last Values WBC 5.30 10^3/uL (3.29-11.43) 11/30/24 04:21 RBC 3.58 10^6/uL (3.85-5.65) L 11/30/24 04:21 Hgb 11.80 g/dL (11.27-16.99) 11/30/24 04:21 Hct 35.2 % (37-53) L 11/30/24 04:21 MCV 98.3 fl (82-101) 11/30/24 04:21 MCH 33.0 pg (27-33) 11/30/24 04:21 MCHC 33.5 g/dL (30-55) 11/30/24 04:21 RDW 13.0 % (12.1-15.1) 11/30/24 04:21 Plt Count 245 10^3/cmm (157-399) 11/30/24 04:21 MPV 8.8 fL (7.4-10.4) 11/30/24 04:21 Neut % (Auto) 60.0 % 11/30/24 04:21 Lymph % (Auto) 27.2 % 11/30/24 04:21 [place] % (Auto) 7.7 % 11/30/24 04:21 Eos % (Auto) 3.6 % 11/30/24 04:21 Baso % (Auto) 0.9 % 11/30/24 04:21 Neut # (Auto) 3.18 10^3/uL (1.8-7.7) 11/30/24 04:21 Lymph # (Auto) 1.4 10^3/uL (0.8-4.8) 11/30/24 04:21 [place] # (Auto) 0.4 10^3/uL (0.2-0.9) 11/30/24 04:21 Eos # (Auto) 0.2 10^3/uL (0.0-0.8) 11/30/24 04:21 Baso # (Auto) 0.1 10^3/uL (0.0-0.1) 11/30/24 04:21 Nucleated RBC % (auto) 0 % 11/30/24 04:21 Nucleated RBCs # 0.0 /100WBC 11/30/24 04:21 Sodium 145 mmol/L (136-145) 11/30/24 04:21 Potassium 4.6 mmol/L (3.5-5.1) 11/30/24 04:21 Chloride 110 mmol/L (98-107) H 11/30/24 04:21 Carbon Dioxide 22 mmol/L (22-29) 11/30/24 04:21 Anion Gap 17.6 (5-19) 11/30/24 04:21 BUN 15 mg/dL (8-23) 11/30/24 04:21 Creatinine 1.4 mg/dL (0.7-1.2) H 11/30/24 04:21 GFR Calculation Not Reportable 11/30/24 04:21 Glucose 92 mg/dL (65-115) 11/30/24 04:21 Estimat Average Glucose 123 11/29/24 03:46 Hemoglobin A1c 5.9 % (4.0-6.0) 11/29/24 03:46 Calculated Osmolality 300 mOsm/kg (285-295) H 11/30/24 04:21 Calcium 8.8 mg/dL (8.5-10.5) 11/30/24 04:21 Magnesium 1.9 mg/dL (1.7-2.3) 11/30/24 04:21 Iron 62 ug/dL (59-158) 11/29/24 10:18 TIBC 315 mcg/dl 11/29/24 10:18 % Saturation 19.6 % (20-50) L 11/29/24 10:18 Unsat Iron Binding 253 ug/dL (112-347) 11/29/24 10:18 Total Bilirubin 0.4 mg/dL (0.15-1.2) 11/30/24 04:21 AST 22 U/L (0-40) 11/30/24 04:21 ALT 33 U/L (0-41) 11/30/24 04:21 Alkaline Phosphatase 27 U/L (40-130) L 11/30/24 04:21 Troponin T Baseline 23 ng/L (0-15) H 11/29/24 03:46 Troponin T 120 Minute 19.81 ng/L (0-15) H 11/29/24 05:12 Delta Troponin T -3.19 ABS# (0-10) L 11/29/24 05:12 Troponin T Hi Sens 6Hr 20.25 ng/L (0-15) H 11/29/24 10:18 Troponin T Hi Sens 6Hr Delta -2.75 ng/L (0-12) L 11/29/24 10:18 Total Protein 6.0 g/dL (6.6-8.7) L 11/30/24 04:21 Albumin 3.6 g/dL (3.5-5.2) 11/30/24 04:21 Globulin 2.4 g/dL (1.3-4.6) 11/30/24 04:21 Triglycerides 44 mg/dL (0-150) 11/29/24 03:46 Cholesterol 171 mg/dL (0-200) 11/29/24 03:46 LDL Cholesterol, Calc 100 mg/dL (50-129) 11/29/24 03:46 Total VLDL Cholesterol 9 mg/dL (0-30) 11/29/24 03:46 HDL Cholesterol 62 mg/dL (60-100) 11/29/24 03:46 Cholesterol/HDL Ratio 2.76 mg/dL (1.0-5.00) 11/29/24 03:46 Lipase 55 U/L (13-60) 11/29/24 03:46 Vitamin B12 513 pg/mL (232-1245) 11/29/24 10:18 Folate 8.5 ng/mL (4.5-32.2) 11/30/24 04:21 TSH 1.15 uIU/mL (0.27-4.20) 11/29/24 10:18 A&P Assessment and plan 1. Chest pain, unspecified type: Most likely the chest pain is noncardiac. Based on the results of the Myocardial perfusion imaging, the chances of him having any underlying Significant coronary artery disease is low. The test is 85 to 90% arrival. The implication of this was discussed in detail with the patient. At this point, it might be appropriate to hold off on any further investigations. 2. Abnormal EKG: Most likely the changes are nonspecific. May continue on the current medications 3. Benign hypertension: The blood pressure is under control. May continue on the current medications. Plan: In view of the unremarkable Myocardial perfusion imaging, it may be appropriate to hold off on any further investigation at this time. Patient may continue on the risk modifying measures. If he continues to remain stable, may be discharged home from a cardiac standpoint. I may see him in the clinic in a month PDMP PDMP Reviewed: Not Reviewed Attestations 2 Medical Necessity Statement*: Possible discharge home today Coding Level of Care Code 88285 Diagnoses Chest pain, unspecified type R07.9 Chest pain type: unspecified Abnormal EKG R94.31 Benign hypertension I10
--- NOTE | 2024-11-30 08:05 | PC.SOCIAL ---
IMM Update Pg. 2 of IMM updated and reviewed with patient, who verbalized understanding. Copy provided.
--- NOTE | 2024-11-30 08:28 | P.DS_ITS ---
Discharge Providers Date of Admission: 11/29/24 05:53 Date of Discharge: November 30, 2024 Attending Provider at Admission: Oral Wright Attending Provider at Discharge: Cyrus Schneider MD Consults: Cardiology: Dr. Kamara Primary Care Provider: Grayson Batista MD Diagnoses at Discharge Discharge Diagnosis 1. Chest pain, unspecified type: 2. Abnormal EK. Benign hypertension: Reason for Visit Reason for Visit: CP SOB Stomach Pain Brief History: History as per HPI: Víctor James is a 74 year old male gentleman with a history of fatty liver disease, GERD, skin cancer, chronic kidney disease, and prior DVT who presented to the ED after awakening at 2 AM with sudden, severe, dull, throbbing pain across the mid-chest and upper abdomen. The pain was non-radiating, not reproducible to palpation, and partially worsened with deep inspiration. ED interventions (nitroglycerin, aspirin 225 mg, morphine, IV fluids, ondansetron) reduced the pain to 1/10 residual pressure. He denies similar pain in recent weeks, exertional chest discomfort, nausea, vomiting, diarrhea, fever, chills, rashes, or heavy lifting. Review of systems otherwise negative. He takes celecoxib for back pain and omeprazole at home. He quit smoking at age 29, drinks alcohol rarely, and denies recreational drug use. Family history is notable for his father?s myocardial infarction at age ~79?80 followed by CABG. ED work-up showed BP 150/67 mmHg (presentation 156/119 mmHg), HR 77, RR 18, T 97.6 ?F, SpO? 95% RA, unremarkable CBC, CMP with creatinine 1.4 (mild FLORINA/progression of CKD), glucose 138, mildly elevated ALT 42, low alkaline phosphatase 35, chest X-ray and CT chest/abdomen/pelvis without acute pathology, incidentally enlarged prostate and 2 mm left renal stone, EKG with new inferior T-wave inversions. No prior echo or stress test. Current pain resolved; patient feels well. Hospital Course Hospital Course Patient was admitted to the hospital for evaluation and management of unstable angina. Troponin cycled remained negative. Cardiology was consulted and he underwent Lexiscan stress test on 11/30 which was negative for acute ischemia. During admission he was found to have mild acute kidney injury which was thought to be in setting of chronic NSAID use. During hospitalization his antihypertensives were adjusted. He did have episode of bradycardia during night while sleeping but improved on waking up. Patient remained asymptomatic during hospitalization. He has been discharged in unit in stable condition on oral amlodipine 10 mg daily with advised to hold off on home dose of BenzePril, hydrochlorothiazide. To check his blood pressure daily at home and maintain a blood pressure hide follow-up with your primary care provider within next 2 weeks. Physical Exam Const: COMMON NORMALS: patient oriented x3 and alert GENERAL APPEARANCE: cooperative ORIENTATION/CONSCIOUSNESS: Yes awake HENMT: COMMON NORMALS: oropharynx normal Neck/C-Spine: COMMON NORMALS: no JVD Resp: COMMON NORMALS: normal respiratory effort and clear to auscultation bilaterally AUSCULTATION: clear to auscultation bilaterally Cardio: COMMON NORMALS: no JVD, regular rhythm, S1 normal heart sound present, S2 normal heart sound present and No murmurs present (Cardio) RHYTHM: regular rhythm HEART SOUNDS: S1 normal heart sound present and S2 normal heart sound present GI: COMMON NORMALS: Normal to inspection, nondistended, normoactive bowel sounds present, Soft to palpation and non-tender PALPATION: Yes Soft to palpation Extremity: COMMON NORMALS: no joint enlargement and no pedal edema Neuro: COMMON NORMALS: patient oriented x3 and moves all extremities SENSORIUM/ORIENTATION: Yes alert Skin: COMMON NORMALS: no rashes or lesions noted GENERAL SKIN EXAM: no rashes or lesions noted Discharge Data Studies Completed and Pending Completed Studies During Hospitalization Category Date Time Status CTA chest abdomen pelvis [CT ang ches abdpel 13623/ Cat Scan 11/29/24 03:52 Completed [id number]] Stat Cardiac Stress Test MIBI [Sestamibi Stress Test Request Exams 11/29/24 17:58 Draft ] Routine XR chest 1V portable [id number] Stat Exams 11/29/24 03:43 Completed NM dayo perf SPECT r/s* [id number] Routine Nuc Med 11/30/24 17:58 Completed CV. echo complete* [id number] Routine Ultrasound 11/29/24 06:25 Completed Pending at discharge Category Date Time Status MAG [Magnesium] AM LABS Lab 12/01/24 04:00 Ordered MAG [Magnesium] AM LABS Lab 12/02/24 04:00 Ordered Radiology Impressions Chest X-Ray 11/29/24 03:43 IMPRESSION: There is no evidence of active disease. Limited lung volumes. Chest/Abdomen/Pelvis CTA 11/29/24 03:52 IMPRESSION: 1. Unremarkable CTA chest, abdomen, and pelvis indicating no significant vascular pathology. 2. Moderately enlarged prostate. 3. There is a 2 mm punctate calculus in the lower pole of the left kidney. Lexiscan Stress test PERFUSION FINDINGS Thesmall area of slightly decreased tracer uptake in the mid inferolateral segment with the supine imaging but some reversibility. However with the prone imaging, the was uniform tracer uptake. FUNCTIONAL RESULTS (calculated via Gated SPECT) Stress Image LV EF (%): 84 Stress EDV (mL):101 TID: 0.74 Stress ESV (mL):16 FUNCTIONAL FINDINGS: Segmental wall motion analysis revealing no gross wall motion abnormalities IMPRESSIONS 1. Myocardial perfusion imaging revealing a small area of inconsistent reversible defect in the inferolateral region, most likely artifactual 2. Normal LV ejection fraction of 84% 3. LV wall motion analysis revealing no gross wall motion abnormalities. 4. Normal LV volume Possibly no significant ischemia, based on the above findings Dr Opal Kamara MD [facility] (Electronically Signed) Final Date: 30 November 2024 Laboratory Results WBC 5.30 10^3/uL (3.29-11.43) 11/30/24 04:21 RBC 3.58 10^6/uL (3.85-5.65) L 11/30/24 04:21 Hgb 11.80 g/dL (11.27-16.99) 11/30/24 04:21 Hct 35.2 % (37-53) L 11/30/24 04:21 MCV 98.3 fl (82-101) 11/30/24 04:21 MCH 33.0 pg (27-33) 11/30/24 04:21 MCHC 33.5 g/dL (30-55) 11/30/24 04:21 RDW 13.0 % (12.1-15.1) 11/30/24 04:21 Plt Count 245 10^3/cmm (157-399) 11/30/24 04:21 MPV 8.8 fL (7.4-10.4) 11/30/24 04:21 Neut % (Auto) 60.0 % 11/30/24 04:21 Lymph % (Auto) 27.2 % 11/30/24 04:21 [place] % (Auto) 7.7 % 11/30/24 04:21 Eos % (Auto) 3.6 % 11/30/24 04:21 Baso % (Auto) 0.9 % 11/30/24 04:21 Neut # (Auto) 3.18 10^3/uL (1.8-7.7) 11/30/24 04:21 Lymph # (Auto) 1.4 10^3/uL (0.8-4.8) 11/30/24 04:21 [place] # (Auto) 0.4 10^3/uL (0.2-0.9) 11/30/24 04:21 Eos # (Auto) 0.2 10^3/uL (0.0-0.8) 11/30/24 04:21 Baso # (Auto) 0.1 10^3/uL (0.0-0.1) 11/30/24 04:21 Nucleated RBC % (auto) 0 % 11/30/24 04:21 Nucleated RBCs # 0.0 /100WBC 11/30/24 04:21 Sodium 145 mmol/L (136-145) 11/30/24 04:21 Potassium 4.6 mmol/L (3.5-5.1) 11/30/24 04:21 Chloride 110 mmol/L (98-107) H 11/30/24 04:21 Carbon Dioxide 22 mmol/L (22-29) 11/30/24 04:21 Anion Gap 17.6 (5-19) 11/30/24 04:21 BUN 15 mg/dL (8-23) 11/30/24 04:21 Creatinine 1.4 mg/dL (0.7-1.2) H 11/30/24 04:21 GFR Calculation Not Reportable 11/30/24 04:21 Glucose 92 mg/dL (65-115) 11/30/24 04:21 Estimat Average Glucose 123 11/29/24 03:46 Hemoglobin A1c 5.9 % (4.0-6.0) 11/29/24 03:46 Calculated Osmolality 300 mOsm/kg (285-295) H 11/30/24 04:21 Calcium 8.8 mg/dL (8.5-10.5) 11/30/24 04:21 Magnesium 1.9 mg/dL (1.7-2.3) 11/30/24 04:21 Iron 62 ug/dL (59-158) 11/29/24 10:18 TIBC 315 mcg/dl 11/29/24 10:18 % Saturation 19.6 % (20-50) L 11/29/24 10:18 Unsat Iron Binding 253 ug/dL (112-347) 11/29/24 10:18 Total Bilirubin 0.4 mg/dL (0.15-1.2) 11/30/24 04:21 AST 22 U/L (0-40) 11/30/24 04:21 ALT 33 U/L (0-41) 11/30/24 04:21 Alkaline Phosphatase 27 U/L (40-130) L 11/30/24 04:21 Troponin T Baseline 23 ng/L (0-15) H 11/29/24 03:46 Troponin T 120 Minute 19.81 ng/L (0-15) H 11/29/24 05:12 Delta Troponin T -3.19 ABS# (0-10) L 11/29/24 05:12 Troponin T Hi Sens 6Hr 20.25 ng/L (0-15) H 11/29/24 10:18 Troponin T Hi Sens 6Hr Delta -2.75 ng/L (0-12) L 11/29/24 10:18 Total Protein 6.0 g/dL (6.6-8.7) L 11/30/24 04:21 Albumin 3.6 g/dL (3.5-5.2) 11/30/24 04:21 Globulin 2.4 g/dL (1.3-4.6) 11/30/24 04:21 Triglycerides 44 mg/dL (0-150) 11/29/24 03:46 Cholesterol 171 mg/dL (0-200) 11/29/24 03:46 LDL Cholesterol, Calc 100 mg/dL (50-129) 11/29/24 03:46 Total VLDL Cholesterol 9 mg/dL (0-30) 11/29/24 03:46 HDL Cholesterol 62 mg/dL (60-100) 11/29/24 03:46 Cholesterol/HDL Ratio 2.76 mg/dL (1.0-5.00) 11/29/24 03:46 Lipase 55 U/L (13-60) 11/29/24 03:46 Vitamin B12 513 pg/mL (232-1245) 11/29/24 10:18 Folate 8.5 ng/mL (4.5-32.2) 11/30/24 04:21 TSH 1.15 uIU/mL (0.27-4.20) 11/29/24 10:18 Vitals Last Vital Signs Temp 98.8 F 11/30/24 07:50 Pulse 70 11/30/24 07:50 Resp 16 11/30/24 07:50 BP 139/79 11/30/24 07:50 Pulse Ox 95 11/30/24 07:50 O2 Del Method Room Air 11/30/24 07:50 Discharge Plan Discharge Patient Disposition: Home Condition: Stable Prescriptions: New aspirin 325 mg Tablet,Delayed Release (Dr/Ec) 81 mg PO DAILY Qty: 30 0RF atorvastatin 10 mg Tablet 20 mg PO BEDTIME 30 Days Qty: 60 0RF amlodipine [Norvasc] 10 mg tablet 10 mg PO DAILY Qty: 30 0RF Continued Lipo-Flavonoid 500 mg tablet 1 tab PO 1XD omeprazole 20 mg Capsule,Delayed Release(Dr/Ec) 20 mg PO QAM acetaminophen [Tylenol Arthritis Pain] 650 mg Tablet Extended Release 1,300 mg PO Q8H PRN (Reason: Pain) Otc Vertigo Tab (Unknown Name) 1 tab PO BEDTIME PRN (Reason: vertigo) Discontinued celecoxib [Celebrex] 200 mg Capsule 200 mg PO BID PRN (Reason: Back Pain) amlodipine-benazepril 10-40 mg capsule 1 cap PO BEDTIME Discharge Order = DC NOW: Discharge Order (Routine); Ordered 11/30/24 Ordered By: Cyrus Schneider Referrals: Clare Ray NP [Nurse Practitioner, Cardiology] - 12/08/24 2:00 pm Grayson Batista MD [Primary Care Provider, Family Practice] - 12/14/24 10:15 am Discharge Diet: Cardiac Patient Instructions: Aspirin (By mouth), Amlodipine (By mouth), Atorvastatin (By mouth) (Lipitor, Atorvaliq), Chest Pain Stoplight, Opioid Safety, Patient Portal & [place] Instructions Activity Restrictions/Additional Instructions: Goal blood pressure less than 140/90 mmHg. Please check your blood pressure daily at home maintain blood pressure diary. Do not take your home dose of combination amlodipine/benazepril. Only take amlodipine 10 mg daily. Follow-up with your primary care provider within the next 2 weeks for further adjustment of antihypertensive as needed with a blood pressure diary. Follow-up with cardiology team in the next 1 month. Please avoid taking Celebrex as it is injuring your kidneys. Discharge Attestations Time Spent in Discharge Care*: greater than 30 min Specific Discharge Activities: educating patient, discussing with pcp/other providers, discussing with bilingual patient support caseworker/social workers/dc planners, documenting/other paperwork and evaluating patient/reviewing data Status at Discharge: Cognitive status at discharge: cognitively intact , Behavioral status at discharge: cooperative , Functional status at discharge: independent ambulation , Overall status at discharge: patient is back to baseline Quality Metrics Clinical Quality Measures [ No reported AMI, CVA or VTE this stay] Coding Level of Care Code 87004 Total time (in minutes) for Discharge: 65 Diagnoses Chest pain, unspecified type R07.9 Chest pain type: unspecified Abnormal EKG R94.31 Benign hypertension I10
[2024-11-30 10:55] VITALS: BP 135/85; PULSE 87; RESP 22; O2SAT 97
--- NOTE | 2024-11-30 17:58 | NMCV_ITS ---
NM dayo perf SPECT r/s* [id number] Víctor James Age: 74 Gender: M : 1950 Exam Date: 11/30/2024 06:24 Ordering Phys: Opal Kamara MD ([email or web address]) Technologist: ASIF Tyler Exam Location: [facility] Indications: cp STRESS TEST Please see separate stress test report in [facility] for full findings IMAGE PROTOCOL Rest/Stress 1 Exercise Day Radiopharmaceutical Dose (mCi) Administration Site Administered by Rest: Tc-99m 10.6 IV ASIF Tyler Sestamibi Stress:Tc-99m 33 IV ASIF [place] Sestamibi Rest: 30-Nov-2024 60 Discovery 630 Stress: 30-Nov-2024 30 Discovery 630 Radiopharmaceutical was injected at 86 % maximum heart rate. Images obtained in supine and prone position. SPECT RESULTS Technical Quality: Good Raw Data Analysis: Normal Image Corrections: No attenuation or motion correction applied Summed Stress Score: 1 Summed Rest Score: 0 Summed Difference Score: 1 PERFUSION FINDINGS Thesmall area of slightly decreased tracer uptake in the mid inferolateral segment with the supine imaging but some reversibility. However with the prone imaging, the was uniform tracer uptake. FUNCTIONAL RESULTS (calculated via Gated SPECT) Stress Image LV EF (%): 84 Stress EDV (mL):101 TID: 0.74 Stress ESV (mL):16 FUNCTIONAL FINDINGS: Segmental wall motion analysis revealing no gross wall motion abnormalities IMPRESSIONS 1. Myocardial perfusion imaging revealing a small area of inconsistent reversible defect in the inferolateral region, most likely artifactual 2. Normal LV ejection fraction of 84% 3. LV wall motion analysis revealing no gross wall motion abnormalities. 4. Normal LV volume Possibly no significant ischemia, based on the above findings Dr Opal Kamara MD [facility] (Electronically Signed) Final Date: 30 November 2024 08:18 S
== END 2024-11-30 11:15 | disposition home or self-care (01) ==
LOC: ER 05:53 → CSU 08:03
PROVIDERS: Admitting Provider Internal Medicine; Emergency Provider Student in an Organized Health Care Education/Training Program; PCP Family Medicine; Visit Provider Student in an Organized Health Care Education/Training Program
DX: I20.0 Unstable angina (principal); R94.31 Abnormal electrocardiogram [ECG] [EKG]; K21.9 Gastro-esophageal reflux disease without esophagitis; Z85.828 Personal history of other malignant neoplasm of skin; I12.9 Hypertensive chronic kidney disease with stage 1 through stage 4 chronic kidney disease, or unspecified chronic kidney disease; N18.9 Chronic kidney disease, unspecified; Z86.718 Personal history of other venous thrombosis and embolism; K76.0 Fatty (change of) liver, not elsewhere classified; Z79.82 Long term (current) use of aspirin; Z87.891 Personal history of nicotine dependence; Z82.49 Family history of ischemic heart disease and other diseases of the circulatory system; R00.1 Bradycardia, unspecified
CPT/HCPCS: 36415; 71045; 71275; 74174; 78452; 80053; 80061; 82607; 82746; 83036; 83540; 83550; 83690; 83735; 84443; 84484; 85025; 93005; 93017; 93306; 96372; 96374; 96375; 99285; A9500; G0378; J1650; J2270; J2405; J3480; J7030; J9999